=== PATIENT | male | born 1975 | race Caucasian/White ===

== ENCOUNTER 2018-12-31 22:21 | Emergency (ER) | payer OTHER ==
[2018-12-31 22:42] VITALS: RESP 18
[2019-01-01] MEDS ORDERED: MECLIZINE 12.5 MG TAB PO STA (00:08)
--- NOTE | 2019-01-01 00:35 | XR ---
EXAM: XR Chest, 2 Views CLINICAL HISTORY: ITS.REASON XR Reason: Chest Pain TECHNIQUE: Frontal and lateral views of the chest. COMPARISON: No relevant prior studies available. FINDINGS: Lungs: Unremarkable. No consolidation. Pleural space: Unremarkable. No pneumothorax. Heart: No suspicious enlargement. Mediastinum: Unremarkable. Bones/joints: No acute fracture. IMPRESSION: No acute findings.
[2019-01-01 00:44] LABS: ALT 42 U/L (21-72); AST 30 U/L (17-59); African American GFR (CKD) >90 (>60 ml/min/1.73 sqM); Alkaline Phosphatase 98 U/L (38-126); Anion Gap 8 mmol/L; Blood Urea Nitrogen 14 mg/dL (9-20); Calcium 9.2 mg/dL (8.4-10.2); Carbon Dioxide 25 mmol/L (22-30); Chloride 105 mmol/L (98-107); Glucose 103 mg/dL (74-99); Magnesium 1.8 mg/dL (1.6-2.3); Potassium 4.5 mmol/L (3.5-5.1); Sodium 138 mmol/L (137-145); Total Bilirubin 0.6 mg/dL (0.2-1.3); Total Protein 7.1 g/dL (6.3-8.2)
[2019-01-01 00:45] LABS: Basophils # (A) 0.1 k/uL (0-0.2); Basophils % (A) 1 %; Eosinophils # (A) 0.2 k/uL (0-0.7); Eosinophils % (A) 1 %; HCT 47.2 % (39.0-53.0); HGB 16.1 gm/dL (13.0-17.5); Lymphocytes # (A) 3.2 k/uL (1.0-4.8); Lymphocytes % (A) 18 %; MCH 29.7 pg (25.0-35.0); MCHC 34.1 g/dL (31.0-37.0); MCV 86.9 fL (80.0-100.0); Mean Platelet Volume 7.5; Monocytes % (A) 6 %; Neutrophils # (A) 12.9 k/uL (1.3-7.7); Neutrophils % (A) 73 %; Platelet Count 333 k/uL (150-450); RBC 5.43 m/uL (4.30-5.90); RDW 13.7 % (11.5-15.5); WBC 17.7 k/uL (3.8-10.6)
[2019-01-01 01:03] LABS: INR 0.9 (<1.2); Prothrombin Time 10.1 sec (9.0-12.0)
[2019-01-01] MEDS ORDERED: METOCLOPRAMIDE 5 MG/ML 2 ML VIAL IVP STA (01:04)
[2019-01-01] MEDS ORDERED: ONDANSETRON 4 MG/2 ML VIAL IVP STA (01:07)
[2019-01-01 01:20] LABS: Partial Thromboplastin Time 20.2 sec (22.0-30.0)
--- NOTE | 2019-01-01 02:23 | CT ---
EXAM: CT Head Without Intravenous Contrast CLINICAL HISTORY: ITS.REASON CT Reason: dizziness TECHNIQUE: Axial computed tomography images of the head/brain without intravenous contrast. DLP is 1539 mGy-cm. This CT exam was performed using one or more of the following dose reduction techniques: automated exposure control, adjustment of the mA and/or kV according to patient size, and/or use of iterative reconstruction technique. COMPARISON: No relevant prior studies available. FINDINGS: Brain: No hemorrhage. No mass effect. Mon white junction preserved. Ventricles: Age appropriate Sinuses: Well aerated as visualized. Mastoid air cells: Well aerated as visualized. IMPRESSION: No acute intracranial findings
--- NOTE | 2019-01-01 02:31 | CT ---
EXAM: CT Angiography Head With Intravenous Contrast CLINICAL HISTORY: ITS.REASON CT Reason: Pain TECHNIQUE: Axial computed tomographic angiography images of the head with intravenous contrast using CT angiography protocol. CTDI is 5 mGy and DLP is 1068.4 mGy-cm. This CT exam was performed using one or more of the following dose reduction techniques: automated exposure control, adjustment of the mA and/or kV according to patient size, and/or use of iterative reconstruction technique. MIP reconstructed images were created and reviewed. COMPARISON: No relevant prior studies available. FINDINGS: Venous contamination. No large vessel occlusion, aneurysm or other vascular etiology for patient's symptoms. IMPRESSION: No vascular findings to explain patient's symptoms. EXAM: CT Angiography Neck With Intravenous Contrast CLINICAL HISTORY: ITS.REASON CT Reason: Pain TECHNIQUE: Axial computed tomographic angiography images of the neck with intravenous contrast using CT angiography protocol. This CT exam was performed using one or more of the following dose reduction techniques: automated exposure control, adjustment of the mA and/or kV according to patient size, and/or use of iterative reconstruction technique. MIP reconstructed images were created and reviewed. COMPARISON: No relevant prior studies available. FINDINGS: No evidence for dissection. No hemodynamically significant ICA stenosis. CAROTID STENOSIS REFERENCE USING NASCET CRITERIA: % ICA stenosis = (1 - narrowest ICA diameter/diameter of distal cervical ICA) x 100. Mild - <50% stenosis. Moderate - 50-69% stenosis. Severe - 70-94% stenosis. Near occlusion - 95-99% stenosis. Occluded - 100% stenosis. IMPRESSION: Unremarkable neck CTA. No significant stenosis.
--- NOTE | 2019-01-01 02:55 | ED ---
Dizziness HPI - General Chief Complaint: Dizziness Stated Complaint: lightheaded/nausea/dizziness Time Seen by Provider: 12/31/18 23:14 Source: patient Mode of arrival: wheelchair Limitations: no limitations - History of Present Illness Initial Comments: 43-year-old male presenting for dizziness x 4 days. Patient states about 4 days ago he began experiencing dizziness, he states it came on suddenly. He states is intense spinning that causes him nausea, he states at times he gets sweaty prior to the onset. He states the dizziness is brought on by patient turning his head abruptly or change of position. Patient states that the symptoms are not constant and fluctuating, he states that they eventually go away and then return with movement. Patient denies any hearing loss or ringing in the ears. Patient denies any numbness or tingling loss of sensation or weakness of the upper or lower extremities, speech or facial expression changes. He denies any headache. He denies any recent head trauma he denies fever or chills night sweats or neck pain. Patient thought he may have vertigo and presented for evaluation with symptoms occurred again today. Remaining review of system negative, Patient denies any recent shortness of breath, chest pain, back pain, abdominal pain, dysuria or hematuria, constipation or diarrhea, diplopia or any other complaints. - Related Data Previous Rx's Medication Instructions Recorded Meclizine [Antivert] 25 mg PO BID 10 Days #20 tab 01/01/19 Ondansetron Odt [Zofran Odt] 4 mg PO Q8HR PRN 7 Days #21 tab 01/01/19 Allergies Allergy/AdvReac Type Severity Reaction Status Date / Time No Known Allergies Allergy Verified 12/31/18 22:43 Review of Systems ROS Statement: Those systems with pertinent positive or pertinent negative responses have been documented in the HPI. ROS Other: All systems not noted in ROS Statement are negative. Past Medical History Past Medical History: Hypertension History of Any Multi-Drug Resistant Organisms: None Reported Past Surgical History: No Surgical Hx Reported Past Psychological History: No Psychological Hx Reported Smoking Status: Never smoker Past Alcohol Use History: Occasional Past Drug Use History: None Reported General Exam - General Exam Comments Initial Comments: General: The patient is awake and alert, in no distress, and does not appear acutely ill. Eye: +3 mm pupils are equal, round and reactive to light, extra-ocular movements are intact. No APD. No noted nystagmus. There is normal conjunctiva bilaterally. No signs of icterus. Ears, nose, mouth and throat: There are moist mucous membranes and no oral lesions. Neck: The neck is supple, there is no tenderness or JVD. Cardiovascular: There is a regular rate and rhythm. No murmur, rub or gallop is appreciated. Respiratory: Lungs are clear to auscultation, respirations are non-labored, breath sounds are equal. No wheezes, stridor, rales, or rhonchi. Gastrointestinal: Soft, non-distended, non-tender abdomen without masses or organomegaly noted. There is no rebound or guarding present. No CVA tenderness. Bowel sounds are unremarkable. Musculoskeletal: Normal ROM, no tenderness. Strength 5/5. Sensation intact. Radial pulses equal bilaterally 2+. Neurological: A&O x 3. CN II-XII intact, There are no obvious motor or sensory deficits. Speech is normal. No pronator drift. Very fluid finger to nose and chin addition of the upper and lower extremity bilaterally. No ataxia with gait. Skin: Skin is warm and dry and no rashes or lesions are noted. No LE edema. Psychiatric: Cooperative, appropriate mood & affect, normal judgment. Limitations: no limitations Course Vital Signs 12/31/18 01/01/19 22:39 03:08 Temperature 97.8 F 97 F L Pulse Rate 66 84 Respiratory 18 18 Rate Blood Pressure 136/75 154/69 O2 Sat by Pulse 95 97 Oximetry EKG Findings - EKG Comments: EKG Findings:: Ventricular rate 66 bpm, NJ interval 168 ms, QRS 90 ms, QT/QTC 46/425 ms. Noraml Sinus. No ST elevation or depression. Medical Decision Making - Medical Decision Making Well-appearing 43-year-old male presenting for dizziness. Patient states it began suddenly 4 days ago with turning of his head. Patient states it feels as though the room is spinning. Patient denies any head injury or headaches. No focal neurological deficits on examination. No signs of ataxia. Movements are very coordinated. No noted nystagmus. Cecilio-Hallpike induced dizziness. No noted nytagmus. No hearing changes. Pt states symptoms come and go pt nauseated/vomiting. Denies chest pain/SOB, EKG no acute abnormalities. Pt CXR WNL. CTA and CT wo contrast were obtained. No posterior vascular compromise, no evidence of acute intracranial process. Pt symptoms appear consistent with a peripheral cause of vertigo and are reproduced with movement of the head. Pt given antivert. Antiemetics. I discussed the case in detail and at length with attending provider Dr. Brewster who is agreeable with patient discharge and care plan today. Pt was given referral for ENT as well as neurology. Return parameters were discussed at length pt verbalized understanding. Pt was discharged appearing well. WIth RX for antivert and antiemetic. Pt verbalized understanding of discharge plan, return parameters and importance of f/u. - Lab Data Result diagrams: 01/01/19 00:18 12/31/18 23:59 Lab Results 12/31/18 12/31/18 01/01/19 Range/Units 23:59 23:59 00:18 WBC 17.7 H (3.8-10.6) k/uL RBC 5.43 (4.30-5.90) m/uL Hgb 16.1 (13.0-17.5) gm/dL Hct 47.2 (39.0-53.0) % MCV 86.9 (80.0-100.0) fL MCH 29.7 (25.0-35.0) pg MCHC 34.1 (31.0-37.0) g/dL RDW 13.7 (11.5-15.5) % Plt Count 333 (150-450) k/uL Neutrophils % 73 % Lymphocytes % 18 % Monocytes % 6 % Eosinophils % 1 % Basophils % 1 % Neutrophils # 12.9 H (1.3-7.7) k/uL Lymphocytes # 3.2 (1.0-4.8) k/uL Monocytes # 1.0 (0-1.0) k/uL Eosinophils # 0.2 (0-0.7) k/uL Basophils # 0.1 (0-0.2) k/uL PT 10.1 (9.0-12.0) sec INR 0.9 (<1.2) APTT 20.2 L (22.0-30.0) sec Sodium 138 (137-145) mmol/L Potassium 4.5 (3.5-5.1) mmol/L Chloride 105 (98-107) mmol/L Carbon Dioxide 25 (22-30) mmol/L Anion Gap 8 mmol/L BUN 14 (9-20) mg/dL Creatinine 0.88 (0.66-1.25) mg/dL Est GFR (CKD-EPI)AfAm >90 (>60 ml/min/1.73 sqM) Est GFR (CKD-EPI)NonAf >90 (>60 ml/min/1.73 sqM) Glucose 103 H (74-99) mg/dL Calcium 9.2 (8.4-10.2) mg/dL Magnesium 1.8 (1.6-2.3) mg/dL Total Bilirubin 0.6 (0.2-1.3) mg/dL AST 30 (17-59) U/L ALT 42 (21-72) U/L Alkaline Phosphatase 98 (38-126) U/L Troponin I (0.000-0.034) ng/mL Total Protein 7.1 (6.3-8.2) g/dL Albumin 4.0 (3.5-5.0) g/dL 01/01/19 Range/Units 00:18 WBC (3.8-10.6) k/uL RBC (4.30-5.90) m/uL Hgb (13.0-17.5) gm/dL Hct (39.0-53.0) % MCV (80.0-100.0) fL MCH (25.0-35.0) pg MCHC (31.0-37.0) g/dL RDW (11.5-15.5) % Plt Count (150-450) k/uL Neutrophils % % Lymphocytes % % Monocytes % % Eosinophils % % Basophils % % Neutrophils # (1.3-7.7) k/uL Lymphocytes # (1.0-4.8) k/uL Monocytes # (0-1.0) k/uL Eosinophils # (0-0.7) k/uL Basophils # (0-0.2) k/uL PT (9.0-12.0) sec INR (<1.2) APTT (22.0-30.0) sec Sodium (137-145) mmol/L Potassium (3.5-5.1) mmol/L Chloride (98-107) mmol/L Carbon Dioxide (22-30) mmol/L Anion Gap mmol/L BUN (9-20) mg/dL Creatinine (0.66-1.25) mg/dL Est GFR (CKD-EPI)AfAm (>60 ml/min/1.73 sqM) Est GFR (CKD-EPI)NonAf (>60 ml/min/1.73 sqM) Glucose (74-99) mg/dL Calcium (8.4-10.2) mg/dL Magnesium (1.6-2.3) mg/dL Total Bilirubin (0.2-1.3) mg/dL AST (17-59) U/L ALT (21-72) U/L Alkaline Phosphatase (38-126) U/L Troponin I <0.012 (0.000-0.034) ng/mL Total Protein (6.3-8.2) g/dL Albumin (3.5-5.0) g/dL Disposition Clinical Impression: Dizziness Disposition: HOME SELF-CARE Condition: Good Instructions (If sedation given, give patient instructions): Dizziness (ED) Additional Instructions: Please use medication as discussed. Please follow-up with family doctor in the next 2 days of symptoms have not improved. Please return to emergency room if the symptoms increase or worsen or for any other concerns. Prescriptions: Meclizine [Antivert] 25 mg PO BID 10 Days #20 tab Ondansetron Odt [Zofran Odt] 4 mg PO Q8HR PRN 7 Days #21 tab PRN Reason: Nausea Is patient prescribed a controlled substance at d/c from ED?: No Referrals: Carol Colin MD [Primary Care Provider] - 1-2 days Buck Young DO [Doctor of Osteopathic Medicine] - 1-2 days Yonas Naranjo MD [Medical Doctor] - 1-2 days Time of Disposition: 02:51
[2019-01-01 03:10] VITALS: BP 154/69; PULSE 84; TEMP 97
== END 2019-01-01 03:10 | disposition home or self-care (01) ==
LOC: EC 22:21
DX: R42 Dizziness and giddiness (principal); R11.0 Nausea
CPT/HCPCS: 99284 ×2; 96374 ×2; 36415; 93005; 80053; 83735; 84484; 85025; 85610; 85730; 71046; 70496; 70450; 70498; J2405; Q9967

== ENCOUNTER → 2020-12-01 | Outpatient (CLI) | payer OTHER ==
--- NOTE | 2020-12-01 12:32 | MM ---
Reason for exam: clinical finding. Indicated problem(s): lump or thickening in the left breast. Physical Findings: Nurse Summary: 1cm nodule in the left breast at 1-2 o'clock (nurse TM). MG 3D Diag Mammo W/Cad KEYLA Bilateral CC and MLO view(s) were taken. XCCL view(s) were taken of the left breast. Finding #1: There is a 10 mm mass in the upper outer quadrant of the left breast. Finding #2: There are typically benign calcifications. These results were verbally communicated with the patient and result sheet given to the patient on 12/01/20. ASSESSMENT: Incomplete: need additional imaging evaluation, BI-RAD 0 RECOMMENDATION: Ultrasound of the left breast.
--- NOTE | 2020-12-01 12:33 | USB ---
Reason for exam: additional evaluation requested from abnormal screening. US Breast LT Left complete breast ultrasound includes all four quadrants, the retroareolar region and axilla. Finding demonstrates a 1.1 x 1.1 x 1.0cm lesion at 2 o'clock. These results were verbally communicated with the patient and result sheet given to the patient on 12/01/20. ASSESSMENT: Benign, BI-RAD 2 RECOMMENDATION: Clinical management of the left breast. Manage patient on a clinical basis.
== END | disposition home or self-care (01) ==
LOC: RADMAMWWP 06:58
PROVIDERS: ATTEND Family Medicine
DX: N63.20 Unspecified lump in the left breast, unspecified quadrant (principal)
CPT/HCPCS: 77066; 76641; G0279; 77062

== ENCOUNTER 2021-05-11 15:01 | Inpatient (IN) | payer OTHER ==
[2021-05-11] MEDS ORDERED: KETOROLAC 15 MG/ML 1 ML VIAL IVP STA (17:01)
[2021-05-11] MEDS ORDERED: ACETAMINOPHEN TAB 500 MG TAB PO STA (17:01)
[2021-05-11] MEDS ORDERED: SODIUM CHLORIDE 0.9% 500 ML 500 ML IV STA (17:01)
[2021-05-11 17:24] LABS: HGB 15.1 gm/dL (13.0-17.5); MCH 30.9 pg (25.0-35.0); MCHC 34.3 g/dL (31.0-37.0); MCV 90.1 fL (80.0-100.0); Mean Platelet Volume 7.6; Platelet Count 292 k/uL (150-450); RBC 4.89 m/uL (4.30-5.90); RDW 12.8 % (11.5-15.5); WBC 20.3 k/uL (3.8-10.6)
[2021-05-11 17:40] LABS: ALT 21 U/L (4-49); AST 23 U/L (17-59); African American GFR (CKD) >90 (>60 ml/min/1.73 sqM); Albumin 4.1 g/dL (3.5-5.0); Alkaline Phosphatase 93 U/L (38-126); Anion Gap 10 mmol/L; Blood Urea Nitrogen 14 mg/dL (9-20); Carbon Dioxide 23 mmol/L (22-30); Chloride 99 mmol/L (98-107); Glucose 100 mg/dL (74-99); Non-African American GFR(CKD) >90 (>60 ml/min/1.73 sqM); Potassium 3.9 mmol/L (3.5-5.1); Sodium 132 mmol/L (137-145); Total Bilirubin 0.8 mg/dL (0.2-1.3); Total Protein 7.2 g/dL (6.3-8.2)
[2021-05-11 17:50] LABS: C Reactive Protein 17.1 mg/dL (<1.0)
[2021-05-11 18:23] LABS: Erythrocyte Sedimentation Rate 16 mm/hr (0-15)
--- NOTE | 2021-05-11 18:24 | US ---
EXAMINATION TYPE: US venous doppler duplex LE RT DATE OF EXAM: 05/11/2021 6:01 PM COMPARISON: NONE CLINICAL HISTORY: pain, swelling. Redness and pain to right leg SIDE PERFORMED: Right TECHNIQUE: The lower extremity deep venous system is examined utilizing real time linear array sonog rea with graded compression, doppler sonography and color-flow sonography. VESSELS IMAGED: Common Femoral Vein Deep Femoral Vein Greater Saphenous Vein * Femoral Vein Popliteal Vein Small Saphenous Vein * Proximal Calf Veins (* superficial vessels) Right Leg: Negative for DVT IMPRESSION: No evidence of deep vein thrombosis in the right leg.
[2021-05-11] MEDS ORDERED: cefTRIAXone IN SWFI 1,000 MG/10 ML SYRINGE IVP STA (18:27)
[2021-05-11] MEDS ORDERED: VANCOMYCIN IV PER PHARMACY 1 EACH MISC MISCELLANE PRN (18:27)
[2021-05-11] MEDS ORDERED: MORPHINE SULFATE 4 MG/ML SYRINGE IVP STA (18:32)
[2021-05-11] MEDS ORDERED: VANCOMYCIN 2,250 MG in SODIUM CHLORIDE 0.9% 500 ML 500 ML IVPB STA (18:33)
--- NOTE | 2021-05-11 18:36 | ED ---
Extremity Problem HPI - General Chief complaint: Extremity Problem,Nontraumatic Stated complaint: Celulitis sent by Cristi Time Seen by Provider: 05/11/21 16:40 Source: patient Mode of arrival: wheelchair Limitations: no limitations - History of Present Illness Initial comments: Patient is a 46-year-old male with history of hypertension, presenting to emergency Department with complaints of cellulitis in his right lower leg for the past week. He noticed some mild swelling of his right foot last week but thought it was because he might of been dehydrated. He states then he noticed some redness develop in his right lower leg near the ankle, he went to his doctor's office on Friday, 4 days ago and was started on Keflex. He states he's been taking this 3 times a day over the past week however yesterday and today the redness and pain has increased tremendously, the redness has now increased of his entire right lower leg. He now developed a fever and chills that started yesterday. He talked to his doctor who recommended coming into the ER for IV antibiotics. He denies being diabetic. He did not have a car injury to that leg that he is aware of. He denies history of blood clots. He has no chest pain or shortness of breath, does have some mild nausea but no vomiting or diarrhea. He has no further complaints at this time. Upon arrival to the ER, he is febrile to 100.1, tachycardia at 107, rest of vitals normal. - Related Data Home Medications Medication Instructions Recorded Confirmed Cephalexin [Keflex] 500 mg PO TID 05/11/21 05/11/21 Ergocalciferol (Vitamin D2) 1,250 mcg PO WEEKLY 05/11/21 05/11/21 [Drisdol (50,000 Iu)] Lisinopril-Hctz 20-25 mg 1 tab PO HS 05/11/21 05/11/21 [Zestoretic 20-25] atenoloL [Tenormin] 50 mg PO HS 05/11/21 05/11/21 Allergies Allergy/AdvReac Type Severity Reaction Status Date / Time No Known Allergies Allergy Verified 05/11/21 17:39 Review of Systems ROS Statement: Those systems with pertinent positive or pertinent negative responses have been documented in the HPI. ROS Other: All systems not noted in ROS Statement are negative. Past Medical History Past Medical History: Hypertension History of Any Multi-Drug Resistant Organisms: None Reported Past Surgical History: No Surgical Hx Reported Past Psychological History: No Psychological Hx Reported Smoking Status: Never smoker Past Alcohol Use History: Occasional Past Drug Use History: None Reported General Exam - General Exam Comments Initial Comments: GENERAL: Patient is well-developed and well-nourished. Patient is nontoxic and in mild distress. HEAD: Atraumatic, normocephalic. EYES: Pupils equal round and reactive to light, extraocular movements intact, sclera anicteric, conjunctiva are normal. Eyelids were unremarkable. ENT: Nares patent, oropharynx clear without exudates. Moist mucous membranes. NECK: Normal range of motion, supple without lymphadenopathy or JVD. LUNGS: Unlabored respirations. Breath sounds clear to auscultation bilaterally and equal. No wheezes rales or rhonchi. HEART: Regular rate and rhythm without murmurs, rubs or gallops. ABDOMEN: Soft, nontender, normoactive bowel sounds. No guarding, no rebound. No masses appreciated. : Deferred MUSCULOSKELETAL: Patient has pain with palpation of the right lower leg, this is swollen when compared to his left lower leg. He has a large amount of erythema spreading from his right ankle up to his right knee. He does have full range of motion of his joints of his right lower extremity. He is neurovascular intact. No clubbing or cyanosis. NEUROLOGICAL: Patient is alert and oriented x 3. SKIN: Warm, Dry, normal turgor. Patient has large area of cellulitis noted on the right lower leg, extends from the right ankle to the right knee. There is swelling present. Limitations: no limitations Course Vital Signs 05/11/21 16:11 Temperature 100.1 F H Pulse Rate 107 H Respiratory 20 Rate Blood Pressure 136/84 O2 Sat by Pulse 96 Oximetry Medical Decision Making - Medical Decision Making Patient is a 46-year-old male here with cellulitis of his right lower leg for the past week. He has been on Keflex. He arrived afebrile at 100.1, pulse is 107. Labs show a white count of 20.3, ESR 16 with CRP is 17.1. Ultrasound is negative for acute DVT of the right lower leg. Patient will be started on Rocephin and vancomycin and will be admitted for failed outpatient therapy, right lower leg cellulitis. Patient accepted by Dr. Morton. Case discussed with Dr. Cardoza. - Lab Data Result diagrams: 05/11/21 17:10 05/11/21 17:10 Lab Results 05/11/21 05/11/21 05/11/21 Range/Units 17:10 17:10 17:10 WBC 20.3 H (3.8-10.6) k/uL RBC 4.89 (4.30-5.90) m/uL Hgb 15.1 (13.0-17.5) gm/dL Hct 44.0 (39.0-53.0) % MCV 90.1 (80.0-100.0) fL MCH 30.9 (25.0-35.0) pg MCHC 34.3 (31.0-37.0) g/dL RDW 12.8 (11.5-15.5) % Plt Count 292 (150-450) k/uL MPV 7.6 ESR 16 H (0-15) mm/hr Sodium 132 L (137-145) mmol/L Potassium 3.9 (3.5-5.1) mmol/L Chloride 99 (98-107) mmol/L Carbon Dioxide 23 (22-30) mmol/L Anion Gap 10 mmol/L BUN 14 (9-20) mg/dL Creatinine 0.91 (0.66-1.25) mg/dL Est GFR (CKD-EPI)AfAm >90 (>60 ml/min/1.73 sqM) Est GFR (CKD-EPI)NonAf >90 (>60 ml/min/1.73 sqM) Glucose 100 H (74-99) mg/dL Plasma Lactic Acid Pablo 2.0 (0.7-2.0) mmol/L Calcium 9.0 (8.4-10.2) mg/dL Total Bilirubin 0.8 (0.2-1.3) mg/dL AST 23 (17-59) U/L ALT 21 (4-49) U/L Alkaline Phosphatase 93 (38-126) U/L C-Reactive Protein 17.1 H (<1.0) mg/dL Total Protein 7.2 (6.3-8.2) g/dL Albumin 4.1 (3.5-5.0) g/dL Disposition Clinical Impression: Cellulitis of right lower leg, Failure of outpatient treatment Disposition: ADMITTED IP TO THIS [facility] Condition: Stable Referrals: Carol Colin MD [Primary Care Provider] - 1-2 days Decision Date: 05/11/21 Decision Time: 18:43
[2021-05-11] MEDS ORDERED: ACETAMINOPHEN TAB 325 MG TAB PO PRN (18:43)
[2021-05-11] MEDS ORDERED: NALOXONE 0.4 MG/ML 1 ML VIAL IV PRN (18:43)
[2021-05-11] MEDS: SODIUM CHLORIDE 0.9% 1,000 ML IV SCH (19:50)
[2021-05-11] MEDS: KETOROLAC 15 MG/ML 1 ML VIAL IVP PRN (20:58)
[2021-05-11] MEDS: atenoloL 50 MG TAB PO SCH (23:46)
[2021-05-11] MEDS: LISINOPRIL-HCTZ 20-25 MG 1 EACH TAB PO SCH (23:46)
[2021-05-11] MEDS: MORPHINE SULFATE 4 MG/ML SYRINGE IV PRN (23:46)
--- NOTE | 2021-05-12 03:03 | P.HPIM ---
History of Present Illness H&P Date: 05/11/21 Chief Complaint: right leg swelling erythema 46 year old male with hypertension He comes in today due to worsening swelling and erythema of his right lower leg. symptoms started about a week ago , he can not recall any injury or trigger, no recent travel or hospitalization , no history of cancer, or surgery . patient PCP put him on keflex , he had 5 doses , but with no improvement , today he noticed worsening swelling and extension of erythema from his ankle , to the proximal right leg, with intense pain , 10/10 sharp attacks of pain with movement that lasts few seconds. for which he called his PCP, who recommended that he comes in for evaluation , no reported fever or chills at home, no other systemic symptoms. denies any chest pain , trouble breathing, abd pain , nausea or vomiting, denies any changes in his urinary or bowel habits. in the ED , venous doppler US , was negative for any acute DVT blood work showed elevated WBC temp in the ED was 100.1 Review of Systems Pertinent positives as noted in HPI. All other systems were reviewed and are negative Past Medical History Past Medical History: Hypertension History of Any Multi-Drug Resistant Organisms: None Reported Past Surgical History: No Surgical Hx Reported Past Psychological History: No Psychological Hx Reported Smoking Status: Never smoker Past Alcohol Use History: Occasional Past Drug Use History: None Reported - Past Family History family Family Medical History: No Reported History Medications and Allergies Home Medications Medication Instructions Recorded Confirmed Type Cephalexin [Keflex] 500 mg PO TID 05/11/21 05/11/21 History Ergocalciferol (Vitamin D2) 1,250 mcg PO WEEKLY 05/11/21 05/11/21 History [Drisdol (50,000 Iu)] Lisinopril-Hctz 20-25 mg 1 tab PO HS 05/11/21 05/11/21 History [Zestoretic 20-25] atenoloL [Tenormin] 50 mg PO HS 05/11/21 05/11/21 History Allergies Allergy/AdvReac Type Severity Reaction Status Date / Time No Known Allergies Allergy Verified 05/11/21 17:39 Physical Exam Vitals: Vital Signs Temp Pulse Pulse Resp BP BP Pulse Ox 05/11/21 20:59 98.3 F 84 18 133/82 95 05/11/21 20:00 84 18 117/66 96 05/11/21 16:11 100.1 F H 107 H 20 136/84 96 Intake and Output 05/11/21 05/11/21 05/11/21 06:59 14:59 22:59 Other: Weight 150.139 kg Constitutional: No acute distress, conversant, pleasant Eyes: Anicteric sclerae, moist conjunctiva, Pupils equal round reactive to light ENMT: NC/AT Oropharynx clear, no erythema, or exudates Neck: Supple, FROM, no masses, or JVD No carotid bruits No thyromegaly Lungs: Clear to auscultation Clear to percussion Normal respiratory effort, no accessory muscle use Cardiovascular: Heart regular in rate and rhythm, No murmurs, gallops, or rubs No peripheral edema Abdominal: Soft Nontender, no guarding, rebound or rigidity Abdomen moving with respiration Normoactive bowel sounds No hepatomegaly, No splenomegaly No palpable mass No abdominal wall hernia noted Skin: erythema and induration of the right leg , area was marked, with tenderness to palpation , no noted wounds or injury site. Extremities: No digital cyanosis No clubbing Pedal pulses intact and symmetrical Radial pulses intact and symmetrical No calf tenderness Psychiatric: Alert and oriented to person, place and time Appropriate affect fair judgement Neuro Muscles Strength 5/5 in all 4 extremities (limited exam over right lo wer extremity due to pain Sensation to light touch grossly present throughout Cranial nerves II-XII grossly intact No focal sensory deficits Lymphatics: no palpable cervical or supraclavicular , or inguinal lymph nodes Results CBC & Chem 7: 05/11/21 17:10 05/11/21 17:10 Labs: Abnormal Lab Results - Last 24 Hours (Table) 05/11/21 05/11/21 Range/Units 17:10 17:10 WBC 20.3 H (3.8-10.6) k/uL ESR 16 H (0-15) mm/hr Sodium 132 L (137-145) mmol/L Glucose 100 H (74-99) mg/dL C-Reactive Protein 17.1 H (<1.0) mg/dL Assessment and Plan Assessment: sepsis cellulitis of the right lower leg, failed outpatien therapy follow blood culture vanco dosing by pharmacy monitor vital signs pain control with opioids IVF hydration with normal saline 1 L bolus then 130 cc per hour tylenol for fever hypertension , controlle d resume home meds full code heparin sc for DVT ppx anticipated length of stay < 2 midnights anticipated discharge to home
[2021-05-12] MEDS: SODIUM CHLORIDE 0.9% 1,000 ML IV SCH ×3 (04:46→22:43)
[2021-05-12] MEDS: IBUPROFEN 400 MG TAB PO PRN ×2 (04:47→15:41)
[2021-05-12] MEDS: MORPHINE SULFATE 4 MG/ML SYRINGE IV PRN ×2 (06:27→12:49)
[2021-05-12] MEDS: VANCOMYCIN 2,250 MG in SODIUM CHLORIDE 0.9% 500 ML 500 ML IVPB SCH ×2 (07:23→22:44)
[2021-05-12 08:06] LABS: African American GFR (CKD) >90 (>60 ml/min/1.73 sqM); Anion Gap 6 mmol/L; Blood Urea Nitrogen 14 mg/dL (9-20); Calcium 8.5 mg/dL (8.4-10.2); Carbon Dioxide 26 mmol/L (22-30); Chloride 103 mmol/L (98-107); Glucose 116 mg/dL (74-99); Non-African American GFR(CKD) >90 (>60 ml/min/1.73 sqM); Potassium 4.2 mmol/L (3.5-5.1); Sodium 135 mmol/L (137-145)
[2021-05-12] MEDS: KETOROLAC 15 MG/ML 1 ML VIAL IVP PRN ×3 (09:55→22:52)
[2021-05-12 11:38] LABS: HCT 41.7 % (39.6-50.0); HGB 14.1 g/dL (13.0-17.0); MCH 30.5 pg (27.0-32.0); MCHC 33.8 g/dL (32.0-37.0); MCV 90.3 fL (80.0-97.0); Mean Platelet Volume 10.7 fL (9.5-12.2); Platelet Count 260 X 10*3/uL (140-440); RBC 4.62 X 10*6/uL (4.40-5.60); RDW 12.6 % (11.5-14.5); WBC 16.56 X 10*3/uL (4.50-10.00)
[2021-05-12 13:12] LABS: Basophils # (A) 0.05 X 10*3/uL (0.00-0.10); Basophils % (A) 0.3 %; Eosinophils % (A) 0.6 %; Lymphocytes # (A) 2.13 X 10*3/uL (0.90-5.00); Lymphocytes % (A) 12.9 %; Monocytes # (A) 1.73 X 10*3/uL (0.20-1.00); Monocytes % (A) 10.4 %; Neutrophils # (A) 12.48 X 10*3/uL (1.80-7.70); Neutrophils % (A) 75.4 %
--- NOTE | 2021-05-12 17:23 | P.PN ---
Subjective Progress Note Date: 05/12/21 (delayed charting seen at 1130) Principal diagnosis: Leg redness Patient is a 46-year-old male for history of hypertension who presented to the emergency department at the direction of his primary care physician Dr. Sloan Mays for failed outpatient treatment of cellulitis. He had been started on Keflex and received 1.5 days of treatment but had worsening of his pain, edema, and redness and therefore presented to the ER. In the emergency department he underwent extensive evaluation. On arrival he was febrile at 100.1. Initial labs showed a white blood cell count of 20.3, sodium 132, CRP 17. He was started on vancomycin and admitted for further monitoring. The day after admission his white blood cell count improved to 12 he still had significant swelling, erythema and pain. Imaging: Right lower [place] evening as Doppler-no DVT Patient seen and examined at bedside. He states he was an [employer] and therefore knows with the antibiotics have not gotten to the Core the infection and she continues to have pain when he is ambulating. He denies any nausea, vomiting, or loose stools. Denies any chest pain or shortness of breath. He did not have any injury or skin breaks to his lower extremity. He does sometimes develop lower extremity edema. General: non toxic, no distress, appears at stated age Derm: Swelling, warmth, and erythema to the right lower extremity from ankle through does not extend past the lines of demarcation. Head: atraumatic, normocephalic, symmetric Eyes: EOMI, no lid lag, anicteric sclera Mouth: no lip lesion, mucus membranes moist Cardiovascular: S1S2 reg, no murmur, positive posterior tibial pulse bilateral, Lungs: CTA bilateral, no rhonchi, no rales , no accessory muscle use Abdominal: soft, nontender to palpation, no guarding, no appreciable organomegaly Ext: no gross muscle atrophy, no contractures Neuro: CN II-XI grossly intact, no focal neuro deficits Psych: Alert, oriented, appropriate affect Right lower extremity cellulitis failed outpatient treatment with sepsis -Continue with IV fluids -Vancomycin -Repeat CBC in a.m. Hypertension, controlled -Continue with lisinopril, hydrochlorothiazide - follow blood pressure Vitamin D Deficiency - replacement will need on discharge. DVT prophylaxis: SCDs Discussed with: patient, nursing Anticipated discharge: in AM Anticipated discharge place: home A total of 35 minutes was spent on the care of this complex patient more than 50% of the time was spent in counseling and care coordination. Objective - Vital Signs Vital signs: Vital Signs Temp 99.0 F 05/12/21 14:00 Pulse 72 05/12/21 14:00 Resp 19 05/12/21 14:00 BP 105/67 05/12/21 14:00 Pulse Ox 98 05/12/21 14:00 Intake & Output 05/11/21 05/12/21 05/12/21 18:59 06:59 18:59 Weight 150.139 kg 150.139 kg Other: Voiding Method Toilet Toilet - Labs CBC & Chem 7: 05/12/21 07:24 05/12/21 07:24 Labs: Abnormal Lab Results - Last 24 Hours (Table) 05/11/21 05/11/21 05/12/21 Range/Units 17:10 17:10 07:24 WBC 20.3 H (3.8-10.6) k/uL Immature Gran # (0.00-0.04) X 10*3/uL Neutrophils # (1.80-7.70) X 10*3/uL Monocytes # (0.20-1.00) X 10*3/uL ESR 16 H (0-15) mm/hr Sodium 132 L 135 L (137-145) mmol/L Glucose 100 H 116 H (74-99) mg/dL C-Reactive Protein 17.1 H (<1.0) mg/dL 05/12/21 Range/Units 07:24 WBC 16.56 H (3.8-10.6) k/uL Immature Gran # 0.07 H (0.00-0.04) X 10*3/uL Neutrophils # 12.48 H (1.80-7.70) X 10*3/uL Monocytes # 1.73 H (0.20-1.00) X 10*3/uL ESR (0-15) mm/hr Sodium (137-145) mmol/L Glucose (74-99) mg/dL C-Reactive Protein (<1.0) mg/dL
[2021-05-12] MEDS: HYDROcodone/APAP 5-325MG 1 EACH TAB PO PRN ×2 (17:38→22:44)
[2021-05-12] MEDS: CHOLECALCIFEROL 25 MCG (1000 IU) TABLET PO SCH (17:39)
[2021-05-12] MEDS: atenoloL 50 MG TAB PO SCH (22:44)
[2021-05-12] MEDS: LISINOPRIL-HCTZ 20-25 MG 1 EACH TAB PO SCH (22:44)
[2021-05-13] MEDS: KETOROLAC 15 MG/ML 1 ML VIAL IVP PRN ×3 (04:08→17:54)
[2021-05-13] MEDS: HYDROcodone/APAP 5-325MG 1 EACH TAB PO PRN ×3 (04:09→17:53)
[2021-05-13] MEDS: SODIUM CHLORIDE 0.9% 1,000 ML IV SCH ×2 (04:12→08:33)
[2021-05-13] MEDS: VANCOMYCIN 2,250 MG in SODIUM CHLORIDE 0.9% 500 ML 500 ML IVPB SCH ×2 (08:32→17:54)
[2021-05-13] MEDS: CHOLECALCIFEROL 25 MCG (1000 IU) TABLET PO SCH (08:33)
[2021-05-13 11:16] LABS: HCT 38.8 % (39.6-50.0); HGB 13.1 g/dL (13.0-17.0); MCH 30.1 pg (27.0-32.0); MCHC 33.8 g/dL (32.0-37.0); MCV 89.2 fL (80.0-97.0); Mean Platelet Volume 10.6 fL (9.5-12.2); Platelet Count 249 X 10*3/uL (140-440); RBC 4.35 X 10*6/uL (4.40-5.60); RDW 12.6 % (11.5-14.5); WBC 13.65 X 10*3/uL (4.50-10.00)
[2021-05-13 12:43] LABS: African American GFR (CKD) 105.6 (60.0-200.0); Anion Gap 3.8 mmol/L (4.00-12.00); Carbon Dioxide 27.2 mmol/L (21.6-31.8); Magnesium 1.6 mg/dL (1.5-2.4); Non-African American GFR(CKD) 91.1 (60.0-200.0); Potassium 3.9 mmol/L (3.5-5.5)
--- NOTE | 2021-05-13 14:21 | P.PN ---
Subjective Progress Note Date: 05/13/21 Principal diagnosis: Leg redness Patient is a 46-year-old male for history of hypertension who presented to the emergency department at the direction of his primary care physician Dr. Sloan Mays for failed outpatient treatment of cellulitis. He had been started on Keflex and received 1.5 days of treatment but had worsening of his pain, edema, and redness and therefore presented to the ER. In the emergency department he underwent extensive evaluation. On arrival he was febrile at 100.1. Initial labs showed a white blood cell count of 20.3, sodium 132, CRP 17. He was s tarted on vancomycin and admitted for further monitoring. The day after admission his white blood cell count improved to 16 he still had significant swelling, erythema and pain. He continued to improve slowly. Imaging: Right lower [place] evening as Doppler-no DVT Patient seen and examined at bedside. He states that his redness is better but he is still having tons of pain and cannot flex his foot. He does not feel comfortable going home. Is having loose stools but no diarrhea. He denies any nausea or vomiting. General: non toxic, no distress, appears at stated age Derm: Swelling, warmth, and erythema to the right lower extremity from ankle through does not extend past the lines of demarcation- slightly improved from day prior with some desquamation starting the medial ankle Head: atraumatic, normocephalic, symmetric Eyes: EOMI, no lid lag, anicteric sclera Mouth: no lip lesion, mucus membranes moist Cardiovascular: S1S2 reg, no murmur, positive posterior tibial pulse bilateral, Lungs: CTA bilateral, no rhonchi, no rales , no accessory muscle use Abdominal: soft, nontender to palpation, no guarding, no appreciable organomegaly Ext: no gross muscle atrophy, no contractures Neuro: CN II-XI grossly intact, no focal neuro deficits Psych: Alert, oriented, appropriate affect Right lower extremity cellulitis failed outpatient treatment with sepsis -Completed IV fluids -Vancomycin -Repeat CBC in a.m. Hypertension, controlled -Continue with lisinopril, hydrochlorothiazide - follow blood pressure Vitamin D Deficiency - replacement will need on discharge. Hyponatremia, resolved DVT prophylaxis: SCDs Discussed with: patient, nursing Anticipated discharge: in AM Anticipated discharge place: home A total of 20 minutes was spent on the care of this complex patient more than 50% of the time was spent in counseling and care coordination. Objective - Vital Signs Vital signs: Vital Signs Temp 99.5 F 05/13/21 07:54 Pulse 69 05/13/21 07:54 Resp 18 05/13/21 07:54 BP 101/66 05/13/21 07:54 Pulse Ox 99 05/13/21 07:54 Intake & Output 05/12/21 05/13/21 05/13/21 18:59 06:59 18:59 Intake Total 1080 Balance 1080 Intake: Oral 1080 Other: Voiding Method Toilet Toilet Toilet # Voids 3 - Labs CBC & Chem 7: 05/13/21 06:38 05/13/21 06:38 Labs: Abnormal Lab Results - Last 24 Hours (Table) 05/13/21 05/13/21 Range/Units 06:38 06:38 WBC 13.65 H (4.50-10.00) X 10*3/uL RBC 4.35 L (4.40-5.60) X 10*6/uL Hct 38.8 L (39.6-50.0) % Anion Gap 3.80 L (4.00-12.00) mmol/L Calcium 8.0 L (8.7-10.3) mg/dL Microbiology - Last 24 Hours (Table) 05/11/21 17:10 Blood Culture - Preliminary Blood No Growth after 24 hours
[2021-05-13] MEDS: MORPHINE SULFATE 4 MG/ML SYRINGE IV PRN ×2 (14:53→21:38)
[2021-05-13] MEDS: MAGNESIUM SULFATE-D5W PMX 1 GM in DEXTROSE/WATER 1 100ML.BAG IVPB SCH ×2 (14:53→16:52)
[2021-05-13] MEDS: LISINOPRIL-HCTZ 20-25 MG 1 EACH TAB PO SCH (21:37)
[2021-05-13] MEDS: atenoloL 50 MG TAB PO SCH (21:37)
[2021-05-14] MEDS: MORPHINE SULFATE 4 MG/ML SYRINGE IV PRN ×3 (01:06→20:33)
[2021-05-14] MEDS: KETOROLAC 15 MG/ML 1 ML VIAL IVP PRN (03:57)
[2021-05-14] MEDS: HYDROcodone/APAP 5-325MG 1 EACH TAB PO PRN (03:58)
[2021-05-14] MEDS ORDERED: GABAPENTIN 300 MG CAP PO STA (05:25)
[2021-05-14] MEDS ORDERED: VANCOMYCIN TROUGH DUE 1 EACH MISC MISCELLANE ONE (06:00)
[2021-05-14 07:15] LABS: African American GFR (CKD) >90 (>60 ml/min/1.73 sqM); Anion Gap 5 mmol/L; Blood Urea Nitrogen 10 mg/dL (9-20); Calcium 8.3 mg/dL (8.4-10.2); Carbon Dioxide 24 mmol/L (22-30); Chloride 104 mmol/L (98-107); Glucose 104 mg/dL (74-99); Non-African American GFR(CKD) >90 (>60 ml/min/1.73 sqM); Potassium 3.8 mmol/L (3.5-5.1); Sodium 133 mmol/L (137-145)
[2021-05-14 07:43] LABS: HCT 39.3 % (39.0-53.0); HGB 13.6 gm/dL (13.0-17.5); MCH 31.1 pg (25.0-35.0); MCHC 34.7 g/dL (31.0-37.0); MCV 89.8 fL (80.0-100.0); Mean Platelet Volume 8.2; Platelet Count 321 k/uL (150-450); RBC 4.38 m/uL (4.30-5.90); RDW 12.8 % (11.5-15.5); WBC 12.5 k/uL (3.8-10.6)
[2021-05-14] MEDS: VANCOMYCIN 2,250 MG in SODIUM CHLORIDE 0.9% 500 ML 500 ML IVPB SCH ×2 (08:23→20:27)
[2021-05-14] MEDS: CHOLECALCIFEROL 25 MCG (1000 IU) TABLET PO SCH (08:28)
--- NOTE | 2021-05-14 11:54 | P.PN ---
Subjective Progress Note Date: 05/14/21 Principal diagnosis: Leg redness Patient is a 46-year-old male for history of hypertension who presented to the emergency department at the direction of his primary care physician Dr. Sloan Mays for failed outpatient treatment of cellulitis. He had been started on Keflex and received 1.5 days of treatment but had worsening of his pain, edema, and redness and therefore presented to the ER. In the emergency department he underwent extensive evaluation. On arrival he was febrile at 100.1. Initial labs showed a white blood cell count of 20.3, sodium 132, CRP 17. He was s tarted on vancomycin and admitted for further monitoring. The day after admission his white blood cell count improved to 16 he still had significant swelling, erythema and pain. He continued to improve slowly. His leg remained significantly red, swollen and painful. Concerns for possible strep over staph and rocephin added on 05/14. Imaging: Right lower [place] evening as Doppler-no DVT Patient seen and examined at bedside. No chest pain, no nausea, + BM today, still with increased pain when walking states that neurontin helped more than anything else. No nausea. General: non toxic, no distress, appears at stated age Derm: Swelling, warmth, and erythema to the right lower extremity from ankle through does not extend past the lines of demarcation- with possible blister formation right ankle. Head: atraumatic, normocephalic, symmetric Eyes: EOMI, no lid lag, anicteric sclera Mouth: no lip lesion, mucus membranes moist Cardiovascular: S1S2 reg, no murmur, positive posterior tibial pulse bilateral, Lungs: CTA bilateral, no rhonchi, no rales , no accessory muscle use Abdominal: soft, nontender to palpation, no guarding, no appreciable organomegaly Ext: no gross muscle atrophy, no contractures Neuro: CN II-XI grossly intact, no focal neuro deficits Psych: Alert, oriented, appropriate affect Right lower extremity cellulitis failed outpatient treatment with sepsis -Completed IV fluids - add rocephin for better strep coverage - conitnue to monitor. - Vancomycin - Repeat CBC in a.m. Hypertension, controlled - Continue with lisinopril, hydrochlorothiazide - follow blood pressure Vitamin D Deficiency - replacement will need on discharge. Hyponatremia, resolved DVT prophylaxis: SCDs Discussed with: patient, nursing Anticipated discharge: in AM Anticipated discharge place: home A total of 20 minutes was spent on the care of this complex patient more than 50% of the time was spent in counseling and care coordination. Objective - Vital Signs Vital signs: Vital Signs Temp 97.7 F 05/14/21 07:48 Pulse 64 05/14/21 07:48 Resp 16 05/14/21 07:48 BP 103/68 05/14/21 07:48 Pulse Ox 97 05/14/21 07:48 Intake & Output 05/13/21 05/14/21 05/14/21 18:59 06:59 18:59 Intake Total 540 380 Output Total 500 Balance 540 -120 Intake: Oral 540 380 Output: Urine 500 Other: Voiding Method Toilet Toilet Toilet Urinal # Voids 3 1 - Labs CBC & Chem 7: 05/14/21 05:28 05/14/21 05:28 Labs: Abnormal Lab Results - Last 24 Hours (Table) 05/13/21 05/14/21 05/14/21 Range/Units 06:38 05:28 05:28 WBC 12.5 H (3.8-10.6) k/uL Sodium 133 L (137-145) mmol/L Anion Gap 3.80 L (4.00-12.00) mmol/L Glucose 104 H (74-99) mg/dL Calcium 8.0 L 8.3 L (8.7-10.3) mg/dL Microbiology - Last 24 Hours (Table) 05/11/21 17:10 Blood Culture - Preliminary Blood No Growth after 48 hours
[2021-05-14] MEDS: GABAPENTIN 300 MG CAP PO SCH ×3 (11:57→20:28)
[2021-05-14] MEDS: LISINOPRIL-HCTZ 20-25 MG 1 EACH TAB PO SCH (20:28)
[2021-05-14] MEDS: atenoloL 50 MG TAB PO SCH (20:28)
[2021-05-15] MEDS: MORPHINE SULFATE 4 MG/ML SYRINGE IV PRN ×3 (02:12→23:02)
[2021-05-15] MEDS: HYDROcodone/APAP 5-325MG 1 EACH TAB PO PRN ×2 (05:03→13:27)
[2021-05-15] MEDS: VANCOMYCIN 2,250 MG in SODIUM CHLORIDE 0.9% 500 ML 500 ML IVPB SCH ×2 (06:19→18:47)
[2021-05-15 07:41] LABS: HCT 42.5 % (39.0-53.0); HGB 14.2 gm/dL (13.0-17.5); MCH 30.5 pg (25.0-35.0); MCHC 33.4 g/dL (31.0-37.0); MCV 91.3 fL (80.0-100.0); Mean Platelet Volume 7.4; Platelet Count 370 k/uL (150-450); RBC 4.66 m/uL (4.30-5.90); RDW 12.9 % (11.5-15.5); WBC 13.2 k/uL (3.8-10.6)
[2021-05-15 07:56] LABS: African American GFR (CKD) >90 (>60 ml/min/1.73 sqM); Anion Gap 6 mmol/L; Blood Urea Nitrogen 8 mg/dL (9-20); Calcium 8.7 mg/dL (8.4-10.2); Carbon Dioxide 30 mmol/L (22-30); Chloride 101 mmol/L (98-107); Glucose 106 mg/dL (74-99); Non-African American GFR(CKD) >90 (>60 ml/min/1.73 sqM); Potassium 3.8 mmol/L (3.5-5.1); Sodium 137 mmol/L (137-145)
[2021-05-15] MEDS: CHOLECALCIFEROL 25 MCG (1000 IU) TABLET PO SCH (11:01)
[2021-05-15] MEDS: GABAPENTIN 300 MG CAP PO SCH ×3 (11:04→21:25)
--- NOTE | 2021-05-15 13:50 | P.PN ---
Subjective Patient is feeling about the same today. He reported that his right leg is getting very painful when he gets up or even sit in the bed. He is comfortable laying back and slipped over 2 pillows. Area of redness is slightly shrinking compared to the marker. Objective - Vital Signs Vital signs: Vital Signs Temp 98.2 F 05/15/21 07:06 Pulse 62 05/15/21 07:06 Resp 16 05/15/21 07:06 BP 91/55 05/15/21 07:06 Pulse Ox 95 05/15/21 02:09 Intake & Output 05/14/21 05/15/21 05/15/21 18:59 06:59 18:59 Intake Total 800 Output Total 1320 1700 600 Balance -520 -1700 -600 Intake: Oral 800 Output: Urine 1320 1700 600 Other: Voiding Method Toilet Toilet Urinal # Bowel Movements 0 - Exam General: The patient is awake and alert, in no distress Eye: there is normal conjunctiva bilaterally. Neck: The neck is supple, there is no JVD. Cardiovascular: Normal S1-S2, no S3-S4, no murmurs. Respiratory: Lungs clear to auscultation bilaterally Gastrointestinal: Abdomen is soft, nontender Musculoskeletal: There is no pedal edema. Neurological:. Speech is normal. Skin: Skin is warm and dry - Labs CBC & Chem 7: 05/15/21 06:03 05/15/21 06:03 Labs: Abnormal Lab Results - Last 24 Hours (Table) 05/15/21 05/15/21 Range/Units 06:03 06:03 WBC 13.2 H (3.8-10.6) k/uL BUN 8 L (9-20) mg/dL Glucose 106 H (74-99) mg/dL Microbiology - Last 24 Hours (Table) 05/11/21 17:10 Blood Culture - Preliminary Blood No Growth after 72 hours Assessment and Plan Assessment: Patient is a 46-year-old male for history of hypertension who presented to the emergency department at the direction of his primary care physician Dr. Sloan Mays for failed outpatient treatment of cellulitis. He had been started on Keflex and received 1.5 days of treatment but had worsening of his pain, edema, and redness and therefore presented to the ER. In the emergency department he underwent extensive evaluation. On arrival he was febrile at 100.1. Initial labs showed a white blood cell count of 20.3, sodium 132, CRP 17. He was started on vancomycin and admitted for further monitoring. The day after admission his white blood cell count improved to 16 he still had significant swelling, erythema and pain. He continued to improve slowly. His leg remained significantly red, swollen and painful. Concerns for possible strep over staph and rocephin added on 05/14. Imaging: Right lower [place] evening as Doppler-no DVT Right lower extremity cellulitis failed outpatient treatment with sepsis -Completed IV fluids - add rocephin for better strep coverage - conitnue to monitor. - Vancomycin - Repeat CBC in a.m. -Infectious disease consult Hypertension, controlled - Continue with lisinopril, hydrochlorothiazide - follow blood pressure Vitamin D Deficiency - replacement will need on discharge. Hyponatremia, resolved DVT prophylaxis: SCDs Discussed with: patient, nursing Anticipated discharge: in AM Anticipated discharge place: home A total of 20 minutes was spent on the care of this complex patient more than 50% of the time was spent in counseling and care coordinatio
[2021-05-15] MEDS: atenoloL 50 MG TAB PO SCH (21:25)
[2021-05-15] MEDS: LISINOPRIL-HCTZ 20-25 MG 1 EACH TAB PO SCH (22:21)
[2021-05-16] MEDS: MORPHINE SULFATE 4 MG/ML SYRINGE IV PRN ×3 (06:27→20:21)
[2021-05-16] MEDS: VANCOMYCIN 2,250 MG in SODIUM CHLORIDE 0.9% 500 ML 500 ML IVPB SCH (06:32)
[2021-05-16] MEDS: GABAPENTIN 300 MG CAP PO SCH ×3 (08:25→20:21)
[2021-05-16] MEDS: CHOLECALCIFEROL 25 MCG (1000 IU) TABLET PO SCH (08:25)
--- NOTE | 2021-05-16 15:07 | P.PN ---
Subjective Patient reports no improvement lower extremity pain and swelling. There is draining as well. Objective - Vital Signs Vital signs: Vital Signs Temp 98.6 F 05/16/21 13:49 Pulse 76 05/16/21 13:49 Resp 16 05/16/21 13:49 BP 143/74 05/16/21 13:49 Pulse Ox 96 05/16/21 13:49 Intake & Output 05/15/21 05/16/21 05/16/21 18:59 06:59 18:59 Output Total 600 Balance -600 Output: Urine 600 Other: # Voids 6 2 2 # Bowel Movements 1 - Exam General: The patient is awake and alert, in no distress Eye: there is normal conjunctiva bilaterally. Neck: The neck is supple, there is no JVD. Cardiovascular: Normal S1-S2, no S3-S4, no murmurs. Respiratory: Lungs clear to auscultation bilaterally Gastrointestinal: Abdomen is soft, nontender Musculoskeletal: There is no pedal edema. Neurological:. Speech is normal. Skin: Skin is warm and dry - Labs CBC & Chem 7: 05/15/21 06:03 05/15/21 06:03 Labs: Microbiology - Last 24 Hours (Table) 05/11/21 17:10 Blood Culture - Preliminary Blood No Growth after 96 hours Assessment and Plan Assessment: Patient is a 46-year-old male for history of hypertension who presented to the emergency department at the direction of his primary care physician Dr. Sloan Mays for failed outpatient treatment of cellulitis. He had been started on Keflex and received 1.5 days of treatment but had worsening of his pain, edema, and redness and therefore presented to the ER. In the emergency department he underwent extensive evaluation. On arrival he was febrile at 100.1. Initial labs showed a white blood cell count of 20.3, sodium 132, CRP 17. He was started on vancomycin and admitted for further monitoring. The day after admission his white blood cell count improved to 16 he still had significant swelling, erythema and pain. He continued to improve slowly. His leg remained significantly red, swollen and painful. Concerns for possible strep over staph and rocephin added on 05/14. Imaging: Right lower [place] evening as Doppler-no DVT Right lower extremity cellulitis failed outpatient treatment with sepsis Concerns about possible abscess formation -Completed IV fluids - Continue IV antibiotic with vancomycin and ceftriaxone awaiting infectious disease evaluation - Consult vascular surgery for possible I&D Hypertension, controlled - Continue with lisinopril, hydrochlorothiazide - follow blood pressure Vitamin D Deficiency - replacement will need on discharge. Hyponatremia, resolved DVT prophylaxis: SCDs Discussed with: patient, nursing Anticipated discharge: in AM Anticipated discharge place: home A total of 20 minutes was spent on the care of this complex patient more than 50% of the time was spent in counseling and care coordinatio
[2021-05-16] MEDS: ceFAZolin 3 GM in SODIUM CHLORIDE 0.9% 100 ML IVPB SCH (15:13)
[2021-05-16] MEDS: HYDROcodone/APAP 5-325MG 1 EACH TAB PO PRN (16:06)
[2021-05-16] MEDS: CLINDAMYCIN 900 MG in DEXTROSE 5% IN WATER 50 ML IVPB SCH ×2 (16:06)
--- NOTE | 2021-05-16 16:50 | CONS ---
DATE OF CONSULTATION: 05/16/2021 This is a 46-year-old gentleman who came through the ER with history of swelling, pain and redness of the right lower extremity. The patient went to his PCP. Patient started on p.o. antibiotic. His pain became worse and redness became worse. He has been admitted. The patient was seen by infectious disease, started on IV antibiotic. The patient has cellulitis of the right lower extremity with blister formation at the ankle area, which has been opened up. The patient had some fluid. Culture has been taken. The patient does not give any history of cellulitis in the past. No history of trauma. No history of insect bite. The patient had a venous ultrasound which was negative for DVT. PAST MEDICAL HISTORY: History of hypertension, controlled with medication. ALLERGIES: No known allergies. SURGICAL HISTORY: No surgical history reported. PERSONAL HISTORY: No history of drug use or smoking. PHYSICAL EXAMINATION: Patient's temperature was 98.3 on arrival and on 05/11/2021 was 100.1. NECK: Supple. Trachea centered. RESPIRATORY: Good air entry into both lungs. CHEST examination: 1st and second sounds normal. ABDOMEN: Soft, nontender. VASCULAR examination: Brachial, radial femoral pulses are present. PT palpable. Patient has a cellulitis of the right lower extremity with blister which has been opened up. No fluctuation noted. The patient has tenderness on the calf area. Cellulitis is mostly on the anterior aspect of the right lower leg. No venous stasis. No varicosity noted. PLAN: The patient is on IV antibiotic. We will add Silvadene cream with compression wrap and 2 pillow elevation. There is a blister at the ankle site. If does not improve, we may do a small cruciate incision to see if there is any fluid collection or possible CTA of the leg. We will continue IV antibiotic. Follow with you. MMODL / IJN: [id number] / DION
[2021-05-16] MEDS: LISINOPRIL-HCTZ 20-25 MG 1 EACH TAB PO SCH (20:21)
[2021-05-16] MEDS: atenoloL 50 MG TAB PO SCH (20:21)
--- NOTE | 2021-05-16 23:27 | P.CONS ---
History of Present Illness - Reason for Consult Consult date: 05/16/21 right leg cellulitis Requesting physician: Shanae Dia - Chief Complaint right leg swelling and redness x 5 days - History of Present Illness History of present illness : Patient is 46-year male presenting to [facility] ER about 5 days ago in this patient with right lower extremity swelling and redness that apparently was going on for about 4 days b efore he presented to the hospital patient has been evaluated in outpatient setting by her primary care physician and has been treated with the oral Keflex with the patient took about 5 doses however the P did have a more swelling and redness to right lower extremity along with the pain patient describes the pain to be throbbing intensity almost 10 out of 10 and worse when he walks on it patient complaining of fever with chills per instruction of his primary care physician patient presented to the ER on 05/11/2021 for admission IV chemotherapy on admission to the hospital he did have a fever of 100.1 degrees forearm height patient did have a white count of 20,000 kidney function has been normal blood culture has been obtained which are currently pending patient did have a venous Doppler was negative for DVT patient has been treated with the vancomycin and Rocephin infectious disease was consulted as the patient did not have significant improvement with current antibiotic therapy Review of system: CONSTITUTIONAL: Positive for weakness along with the fever. EYES: No complaint. ENT: No complaint. RESPIRATORY: No complaint. CARDIOVASCULAR: No complaint. GENITOURINARY: No complaint. GASTROINTESTINAL: No complaint. MUSCULOSKELETAL: As per history of present illness. INTEGUMENTARY: As per history of present illness. PSYCHOLOGIC: No complaint. ENDOCRINE: No complaint. NEUROLOGIC: No complaint. Past medical history : Reviewed, documented below Past surgical history : Reviewed, documented below Social history: Reviewed, documented below Medications: Reviewed, as documented below EXAMINATION: Vital sigans= Reviewed and documented below GENERAL DESCRIPTION: Middle-aged male lying in bed, no distress. No tachypnea or accessory muscle of respiration use. HEENT: Shows Pallor , no scleral icterus. Oral mucous membrane is dry. NECK: Trachea central, no thyromegaly. LUNGS: Unlabored breathing. Clear to auscultation anteriorly. No wheeze or crackle. HEART: S1, S2, regular rate and rhythm. ABDOMEN: Soft, no tenderness , guarding or rigidity EXTREMITIES: Diffuse swelling redness of the right lower extremity which is warm to touch with a blister no evidence of any induration or drainage SKIN: No rash, no masses palpable. NEUROLOGICAL: The patient is awake, alert, oriented x3, mood and affect normal. LABS AND RADIOLOGY: Reviewed results see below Assessment : 1-patient with acute right lower extremity cellulitis in this patient who did have diffuse swelling and redness and a blister formation high clinical suspicion for streptococcal cellulitis that has not responded to the current antibiotic therapy of vancomycin and Rocephin clinical suspicion low for MRSA wound gram-negative infection Plan: 1-discontinue vancomycin and Rocephin 2-cefazolin 3 g every 8 hours and clindamycin 900 every 8 hour 3-remarked the area of the redness We will follow on clinical condition and cultures to further adjust medication if needed Thank you for this consultation we will follow the patient along with you Past Medical History Past Medical History: Hypertension History of Any Multi-Drug Resistant Organisms: None Reported Past Surgical History: No Surgical Hx Reported Past Anesthesia/Blood Transfusion Reactions: Unable to Obtain Additional Past Anesthesia/Blood Transfusion Reaction / Comm: PT has never had. Past Psychological History: No Psychological Hx Reported Smoking Status: Never smoker Past Alcohol Use History: Occasional Past Drug Use History: None Reported - Past Family History family Family Medical History: No Reported History Medications and Allergies Home Medications Medication Instructions Recorded Confirmed Type Cephalexin [Keflex] 500 mg PO TID 05/11/21 05/11/21 History Ergocalciferol (Vitamin D2) 1,250 mcg PO WEEKLY 05/11/21 05/11/21 History [Drisdol (50,000 Iu)] Lisinopril-Hctz 20-25 mg 1 tab PO HS 05/11/21 05/11/21 History [Zestoretic 20-25] atenoloL [Tenormin] 50 mg PO HS 05/11/21 05/11/21 History Allergies Allergy/AdvReac Type Severity Reaction Status Date / Time No Known Allergies Allergy Verified 05/11/21 17:39 Physical Exam Vitals: Vital Signs Temp Pulse Resp BP BP Pulse Ox 05/16/21 06:38 98.6 F 67 16 102/60 96 05/16/21 02:39 98.4 F 68 16 113/70 99 05/15/21 19:46 98.7 F 87 15 141/88 100 05/15/21 14:00 98.2 F 72 16 102/60 102/60 99 Intake and Output 05/15/21 05/16/21 05/16/21 22:59 06:59 14:59 Other: # Voids 6 2 # Bowel Movements 1 Results CBC & Chem 7: 05/15/21 06:03 05/15/21 06:03 Labs: Microbiology - Last 24 Hours (Table) 05/11/21 17:10 Blood Culture - Preliminary Blood No Growth after 96 hours
[2021-05-17] MEDS: MORPHINE SULFATE 4 MG/ML SYRINGE IV PRN ×5 (00:02→20:15)
[2021-05-17] MEDS: ceFAZolin 3 GM in SODIUM CHLORIDE 0.9% 100 ML IVPB SCH ×3 (00:02→15:54)
[2021-05-17] MEDS: CLINDAMYCIN 900 MG in DEXTROSE 5% IN WATER 50 ML IVPB SCH ×6 (00:02→10:17)
[2021-05-17] MEDS: HYDROcodone/APAP 5-325MG 1 EACH TAB PO PRN ×2 (02:03→08:21)
[2021-05-17] MEDS: CHOLECALCIFEROL 25 MCG (1000 IU) TABLET PO SCH (08:24)
[2021-05-17] MEDS: GABAPENTIN 300 MG CAP PO SCH ×3 (08:24→21:33)
[2021-05-17 09:18] LABS: Basophils # (A) 0.1 k/uL (0-0.2); Basophils % (A) 0 %; Eosinophils # (A) 0.6 k/uL (0-0.7); Eosinophils % (A) 5 %; HCT 42.3 % (39.0-53.0); HGB 14.5 gm/dL (13.0-17.5); Lymphocytes # (A) 2.6 k/uL (1.0-4.8); Lymphocytes % (A) 22 %; MCH 31.1 pg (25.0-35.0); MCHC 34.3 g/dL (31.0-37.0); MCV 90.7 fL (80.0-100.0); Mean Platelet Volume 7.7; Monocytes # (A) 1.1 k/uL (0-1.0); Monocytes % (A) 9 %; Neutrophils # (A) 7.1 k/uL (1.3-7.7); Neutrophils % (A) 61 %; Platelet Count 397 k/uL (150-450); RBC 4.66 m/uL (4.30-5.90); RDW 12.6 % (11.5-15.5); WBC 11.7 k/uL (3.8-10.6)
[2021-05-17 11:08] LABS: African American GFR (CKD) >90 (>60 ml/min/1.73 sqM); Anion Gap 8 mmol/L; Blood Urea Nitrogen 13 mg/dL (9-20); Carbon Dioxide 25 mmol/L (22-30); Chloride 102 mmol/L (98-107); Glucose 87 mg/dL (74-99); Non-African American GFR(CKD) >90 (>60 ml/min/1.73 sqM); Potassium 4.1 mmol/L (3.5-5.1); Sodium 135 mmol/L (137-145)
[2021-05-17 11:18] VITALS: BMI 47.5
--- NOTE | 2021-05-17 12:15 | P.PN ---
Subjective Patient reports feeling about the same compared to yesterday. Is still having a lot of pain and pressure when he gets up to walk with his right lower extremity in particular in the ankle area Objective - Vital Signs Vital signs: Vital Signs Temp 97.8 F 05/17/21 07:32 Pulse 59 L 05/17/21 08:31 Resp 16 05/17/21 07:32 BP 107/65 05/17/21 07:32 Pulse Ox 99 05/17/21 07:32 Intake & Output 05/16/21 05/17/21 05/17/21 18:59 06:59 18:59 Intake Total 1110 Balance 1110 Weight 150.139 kg Intake: Intake, IV Titration 150 Amount Clindamycin 900 mg In 50 Dextrose 5% in Water 50 ml @ 50 mls/hr IVPB Q8HR Y[facility] Rx#:[id number] ceFAZolin 3 gm In Sodium 100 Chloride 0.9% 100 ml @ 200 mls/hr IVPB Q8HR Y[facility] Rx#:[id number] Oral 960 Other: # Voids 2 2 - Exam General: The patient is awake and alert, in no distress Eye: there is normal conjunctiva bilaterally. Neck: The neck is supple, there is no JVD. Cardiovascular: Normal S1-S2, no S3-S4, no murmurs. Respiratory: Lungs clear to auscultation bilaterally Gastrointestinal: Abdomen is soft, nontender Musculoskeletal: There is no pedal edema. Neurological:. Speech is normal. Skin: Skin is warm and dry - Labs CBC & Chem 7: 05/17/21 06:03 05/17/21 06:03 Labs: Abnormal Lab Results - Last 24 Hours (Table) 05/17/21 05/17/21 Range/Units 06:03 06:03 WBC 11.7 H (3.8-10.6) k/uL Monocytes # 1.1 H (0-1.0) k/uL Sodium 135 L (137-145) mmol/L Microbiology - Last 24 Hours (Table) 05/16/21 10:00 Gram Stain - Preliminary Leg - Right Wound Culture - Preliminary 05/11/21 17:10 Blood Culture - Preliminary Blood No Growth after 120 hours Assessment and Plan Assessment: Patient is a 46-year-old male for history of hypertension who presented to the emergency department at the direction of his primary care physician Dr. Sloan Mays for failed outpatient treatment of cellulitis. He had been started on Keflex and received 1.5 days of treatment but had worsening of his pain, edema, and redness and therefore presented to the ER. In the emergency department he underwent extensive evaluation. On arrival he was febrile at 100.1. Initial labs showed a white blood cell count of 20.3, sodium 132, CRP 17. He was started on vancomycin and admitted for further monitoring. The day after admission his white blood cell count improved to 16 he still had significant swelling, erythema and pain. He continued to improve slowly. His leg remained significantly red, swollen and painful. Concerns for possible strep over staph and rocephin added on 05/14. Imaging: Right lower [place] evening as Doppler-no DVT Right lower extremity cellulitis failed outpatient treatment with sepsis Concerns about possible abscess formation -Completed IV fluids - Continue IV antibiotic as directed by infectious disease - Consulted vascular surgery, no need for I&D at this time Hypertension, controlled - Continue with lisinopril, hydrochlorothiazide - follow blood pressure Vitamin D Deficiency - replacement will need on discharge. Hyponatremia, resolved DVT prophylaxis: SCDs Discussed with: patient, nursing Anticipated discharge: in AM Anticipated discharge place: home A total of 20 minutes was spent on the care of this complex patient more than 50% of the time was spent in counseling and care coordinatio
--- NOTE | 2021-05-17 16:28 | PN ---
PROGRESS NOTE This is a 46-year-old gentleman who came with marked cellulitis abscess formation in the right lower extremity. Patient IV antibiotic under care of Infectious Disease. We have been using Silvadene with compression with 2 pillow elevation. Today we have changed the dressing. The patient has improved from marked cellulitis. He responded very well to the IV antibiotic and local care. We have applied Silvadene cream with compression wrap. Dressing can be changed tomorrow with Silvadene and IV antibiotic. MMODL / IJN: [id number] /
--- NOTE | 2021-05-17 17:10 | PN ---
PROGRESS NOTE DATE OF SERVICE: 05/17/2021 REASON FOR FOLLOWUP: Right lower extremity cellulitis. INTERVAL HISTORY: Patient is afebrile, has been breathing comfortably. Denies any chest pain, shortness of breath, cough, no abdominal pain. Pain to the right leg has slightly decreased. Has complained of more pain around the ankle area. PHYSICAL EXAMINATION: Blood pressure 106/69, pulse of 73, temperature 98.2. He is 96% on room air. General description is a middle-aged male lying in bed in no distress. Respiratory system: Unlabored breathing, clear to auscultation anteriorly. Heart S1, S2. Regular rate and rhythm. Abdomen soft, no tenderness. Right leg swelling persists. Redness slightly decreased. LABS: Hemoglobin is 14.5, white count 11.7, BUN of 13, creatinine 0.98. Cultures currently pending. DIAGNOSTIC IMPRESSION AND PLAN: Patient with acute right lower extremity cellulitis, did not respond very well to Rocephin and Vanco. Antibiotic adjusted to cefepime to continue while waiting for the culture to finalize. Monitor clinical course closely. MMODL / IJN: [id number] /
[2021-05-17] MEDS: LISINOPRIL-HCTZ 20-25 MG 1 EACH TAB PO SCH (21:33)
[2021-05-17] MEDS: atenoloL 50 MG TAB PO SCH (21:33)
[2021-05-18] MEDS: ceFAZolin 3 GM in SODIUM CHLORIDE 0.9% 100 ML IVPB SCH ×4 (00:01→23:17)
[2021-05-18] MEDS: CLINDAMYCIN 900 MG in DEXTROSE 5% IN WATER 50 ML IVPB SCH ×8 (00:01→23:54)
[2021-05-18] MEDS: MORPHINE SULFATE 4 MG/ML SYRINGE IV PRN ×2 (02:25→07:58)
[2021-05-18] MEDS: HYDROcodone/APAP 5-325MG 1 EACH TAB PO PRN (05:47)
[2021-05-18] MEDS: CHOLECALCIFEROL 25 MCG (1000 IU) TABLET PO SCH (09:36)
[2021-05-18] MEDS: GABAPENTIN 300 MG CAP PO SCH ×3 (09:36→20:50)
--- NOTE | 2021-05-18 12:15 | P.PN ---
Subjective Patient is feeling slightly better compared to yesterday. No acute events overnight. Right leg is wrapped with clean/dry dressing and Christoph wrap Objective - Vital Signs Vital signs: Vital Signs Temp 98.6 F 05/18/21 08:00 Pulse 66 05/18/21 08:00 Resp 18 05/18/21 08:00 BP 99/61 05/18/21 08:00 Pulse Ox 95 05/18/21 08:00 Intake & Output 05/17/21 05/18/21 05/18/21 18:59 06:59 18:59 Intake Total 630 Output Total 800 Balance -800 630 Weight 150.139 kg Intake: Intake, IV Titration 150 Amount Clindamycin 900 mg In 50 Dextrose 5% in Water 50 ml @ 50 mls/hr IVPB Q8HR [facility] Rx#:[id number] ceFAZolin 3 gm In Sodium 100 Chloride 0.9% 100 ml @ 200 mls/hr IVPB Q8HR [facility] Rx#:[id number] Oral 480 Output: Urine 800 Other: # Voids 3 # Bowel Movements 1 - Exam General: The patient is awake and alert, in no distress Eye: there is normal conjunctiva bilaterally. Neck: The neck is supple, there is no JVD. Cardiovascular: Normal S1-S2, no S3-S4, no murmurs. Respiratory: Lungs clear to auscultation bilaterally Gastrointestinal: Abdomen is soft, nontender Musculoskeletal: There is no pedal edema. Neurological:. Speech is normal. Skin: Skin is warm and dry - Labs CBC & Chem 7: 05/17/21 06:03 05/17/21 06:03 Labs: Microbiology - Last 24 Hours (Table) 05/16/21 10:00 Gram Stain - Final Leg - Right Wound Culture - Final 05/11/21 17:10 Blood Culture - Final Blood No Growth after 144 hours Assessment and Plan Assessment: Patient is a 46-year-old male for history of hypertension who presented to the emergency department at the direction of his primary care physician Dr. Sloan Mays for failed outpatient treatment of cellulitis. He had been started on Keflex and received 1.5 days of treatment but had worsening of his pain, edema, and redness and therefore presented to the ER. In the emergency department he underwent extensive evaluation. On arrival he was febrile at 100.1. Initial labs showed a white blood cell count of 20.3, sodium 132, CRP 17. He was started on vancomycin and admitted for further monitoring. The day after admission his white blood cell count improved to 16 he still had significant swelling, erythema and pain. He continued to improve slowly. His leg remained significantly red, swollen and painful. Concerns for possible strep over staph and rocephin added on 05/14. Imaging: Right lower [place] evening as Doppler-no DVT Right lower extremity cellulitis failed outpatient treatment with sepsis -Completed IV fluids - Continue IV antibiotic as directed by infectious disease - Consulted vascular surgery, no need for I&D at this time -Awaiting recommendations by infectious disease for antibiotic at discharge. Anticipate discharge home tomorrow Hypertension, controlled - Continue with lisinopril, hydrochlorothiazide - follow blood pressure Vitamin D Deficiency - replacement will need on discharge. Hyponatremia, resolved DVT prophylaxis: SCDs Discussed with: patient, nursing Anticipated discharge: in AM Anticipated discharge place: home A total of 20 minutes was spent on the care of this complex patient more than 50% of the time was spent in counseling and care coordinatio
[2021-05-18] MEDS: MORPHINE SULFATE 2 MG/ML SYRINGE IV PRN ×3 (12:31→21:03)
--- NOTE | 2021-05-18 15:35 | CT ---
EXAMINATION TYPE: CT lower leg RT w con DATE OF EXAM: 05/18/2021 COMPARISON: None HISTORY: 46-year-old male swelling and redness to Rt lower leg, assess for abscess TECHNIQUE: Contiguous axial scanning of the right leg from just above the knee to below the ankle per formed with IV Contrast, patient injected with 100 mL of Isovue 300. Coronal/sagittal reconstructions performed. CT DLP: 248 mGycm Automated exposure control for dose reduction was used. FINDINGS: There is prominent circumferential soft tissue swelling along the hindfoot. Thickening and scattered subcutaneous soft tissue swelling throughout the leg with edematous change in the subcutaneous adipos e layer, some areas extending to the superficial fascia suggestive the lateral aspect of the upper le g. There is a trace knee joint effusion. No Moseley's cyst. No discrete abscess is identified. There is a large bony spur from the dorsal talar neck. Smooth delineation to the Achilles tendon. No abnormal edema along the deep fascial planes. Findings curvilinear density along the lateral aspect of the talar head near the sinus Tarsi. If any pain here, findings could represent a subtle avulsion injury. Tiny corticated density also noted belo w the anterior colliculus of the medial malleolus measuring 4 mm. IMPRESSION: 1. PROMINENT SOFT TISSUE SWELLING ALONG THE LEG DOWN INTO THE HINDFOOT. SUBCUTANEOUS EDEMA EXTENDS TO THE SUPERFICIAL FASCIA AT SOME REGIONS SUCH THE LATERAL ASPECT OF THE UPPER LEG. FINDINGS SUGGEST CELLULITIS. 2. NO ABSCESS OR SIGNS OF A DEEPER SOFT TISSUE INFECTION OR OSTEOMYELITIS. 3. FINE CURVILINEAR DENSITY ALONG THE LATERAL ASPECT OF THE TALAR HEAD NEAR THE SINUS TARSI. IF THERE IS POINT TENDERNESS HERE AND HISTORY OF INJURY, FINDINGS COULD REPRESENT A SUBTLE AVULSION FRACTURE.
--- NOTE | 2021-05-18 16:08 | PN ---
PROGRESS NOTE DATE OF SERVICE: 05/18/2021 REASON FOR FOLLOWUP: Right lower extremity cellulitis. INTERVAL HISTORY: The patient is afebrile. He is still complaining of pain to the right lower extremity, especially on his ankle area. Patient denies having any chest pain, shortness of breath or cough. No abdominal pain or diarrhea. PHYSICAL EXAMINATION: Blood pressure 112/67, pulse of 77, temperature 99. He is 97% on room air. GENERAL DESCRIPTION: General description is a middle-aged male lying in bed in no distress. RESPIRATORY SYSTEM: Unlabored breathing. Clear to auscultation anteriorly. HEART: S1, S2. Regular rate and rhythm. ABDOMEN: Soft. No tenderness. Right leg is currently wrapped. Overall redness has decreased from the line that was placed. LABS: No new labs have been obtained today. Cultures are currently negative. Blood culture negative. DIAGNOSTIC IMPRESSION AND PLAN: Patient with acute right lower extremity cellulitis in this patient who did have a very slow clinical response to antibiotic therapy. The patient has been concerned about the pain. We will obtain a CT to make sure no evidence of any abscess that may need to be drained. Continue cefazolin and clindamycin. Continue supportive care. MMODL / IJN: [id number] /
--- NOTE | 2021-05-18 17:38 | PN ---
PROGRESS NOTE This is a 46-year-old gentleman who came in marked cellulitis and blister formation of the lower leg. The patient is on IV antibiotic per Infectious Disease. We were using Silvadene cream with compression wrap. The cellulitis has improved on the anterior aspect of the right lower leg. We did the CTA. CT scan shows no evidence of abscess. Most likely this gentleman has cellulitis responding to IV antibiotic and local care. MMODL / IJN: [id number] /
[2021-05-18] MEDS: LISINOPRIL-HCTZ 20-25 MG 1 EACH TAB PO SCH (20:50)
[2021-05-18] MEDS: atenoloL 50 MG TAB PO SCH (20:50)
[2021-05-19] MEDS: MORPHINE SULFATE 2 MG/ML SYRINGE IV PRN ×2 (02:16→06:17)
[2021-05-19] MEDS: CHOLECALCIFEROL 25 MCG (1000 IU) TABLET PO SCH (08:13)
[2021-05-19] MEDS: GABAPENTIN 300 MG CAP PO SCH ×3 (08:13→21:49)
[2021-05-19] MEDS: ceFAZolin 3 GM in SODIUM CHLORIDE 0.9% 100 ML IVPB SCH ×2 (08:52→17:08)
[2021-05-19 09:09] LABS: Basophils # (A) 0.1 k/uL (0-0.2); Basophils % (A) 1 %; Eosinophils # (A) 0.7 k/uL (0-0.7); Eosinophils % (A) 5 %; HCT 44.3 % (39.0-53.0); Lymphocytes % (A) 16 %; MCH 30.3 pg (25.0-35.0); MCHC 33.8 g/dL (31.0-37.0); MCV 89.5 fL (80.0-100.0); Mean Platelet Volume 6.8; Monocytes # (A) 0.9 k/uL (0-1.0); Monocytes % (A) 7 %; Neutrophils # (A) 8.5 k/uL (1.3-7.7); Neutrophils % (A) 69 %; Platelet Count 397 k/uL (150-450); RBC 4.95 m/uL (4.30-5.90); RDW 12.5 % (11.5-15.5); WBC 12.4 k/uL (3.8-10.6)
[2021-05-19 09:20] LABS: African American GFR (CKD) >90 (>60 ml/min/1.73 sqM); Anion Gap 10 mmol/L; Blood Urea Nitrogen 14 mg/dL (9-20); Calcium 9.1 mg/dL (8.4-10.2); Carbon Dioxide 24 mmol/L (22-30); Chloride 101 mmol/L (98-107); Glucose 117 mg/dL (74-99); Non-African American GFR(CKD) >90 (>60 ml/min/1.73 sqM); Potassium 4.2 mmol/L (3.5-5.1); Sodium 135 mmol/L (137-145)
[2021-05-19] MEDS: CLINDAMYCIN 900 MG in DEXTROSE 5% IN WATER 50 ML IVPB SCH ×4 (09:36→17:08)
[2021-05-19] MEDS ORDERED: diphenhydrAMINE 25 MG CAP PO STA (11:02)
--- NOTE | 2021-05-19 11:05 | P.PN ---
Subjective Patient is still complaining of severe pain and swelling when he gets up. Objective - Vital Signs Vital signs: Vital Signs Temp 97.6 F 05/19/21 08:00 Pulse 75 05/19/21 08:00 Resp 16 05/19/21 08:00 BP 127/85 05/19/21 08:00 Pulse Ox 98 05/19/21 08:00 Intake & Output 05/18/21 05/19/21 05/19/21 18:59 06:59 18:59 Other: Voiding Method Toilet Toilet Toilet Urinal Urinal Urinal # Voids 6 - Exam General: The patient is awake and alert, in no distress Eye: there is normal conjunctiva bilaterally. Neck: The neck is supple, there is no JVD. Cardiovascular: Normal S1-S2, no S3-S4, no murmurs. Respiratory: Lungs clear to auscultation bilaterally Gastrointestinal: Abdomen is soft, nontender Musculoskeletal: There is no pedal edema. Neurological:. Speech is normal. Skin: Skin is warm and dry - Labs CBC & Chem 7: 05/19/21 08:56 05/19/21 08:56 Labs: Abnormal Lab Results - Last 24 Hours (Table) 05/19/21 05/19/21 Range/Units 08:56 08:56 WBC 12.4 H (3.8-10.6) k/uL Neutrophils # 8.5 H (1.3-7.7) k/uL Sodium 135 L (137-145) mmol/L Glucose 117 H (74-99) mg/dL Microbiology - Last 24 Hours (Table) 05/16/21 10:00 Gram Stain - Final Leg - Right Wound Culture - Final Assessment and Plan Assessment: Patient is a 46-year-old male for history of hypertension who presented to the emergency department at the direction of his primary care physician Dr. Sloan Mays for failed outpatient treatment of cellulitis. He had been started on Keflex and received 1.5 days of treatment but had worsening of his pain, edema, and redness and therefore presented to the ER. In the emergency department he underwent extensive evaluation. On arrival he was febrile at 100.1. Initial labs showed a white blood cell count of 20.3, sodium 132, CRP 17. He was started on vancomycin and admitted for further monitoring. The day after admission his white blood cell count improved to 16 he still had significant swelling, erythema and pain. He continued to improve slowly. His leg remained significantly red, swollen and painful. Concerns for possible strep over staph and rocephin added on 05/14. Imaging: Right lower [place] evening as Doppler-no DVT Right lower extremity cellulitis failed outpatient treatment with sepsis -Completed IV fluids - Continue IV antibiotic as directed by infectious disease - Consulted vascular surgery, no need for I&D at this time -Computed tomography scan showed no evidence of abscess formation ? Avulsion fracture -This likely clinically. I would consult orthopedic for further evaluation given significant pain Hypertension, controlled - Continue with lisinopril, hydrochlorothiazide - follow blood pressure Vitamin D Deficiency - replacement will need on discharge. Hyponatremia, resolved DVT prophylaxis: SCDs Discussed with: patient, nursing Anticipated discharge: in AM Anticipated discharge place: home A total of 20 minutes was spent on the care of this complex patient more than 50% of the time was spent in counseling and care coordinatio
[2021-05-19] MEDS: HYDROcodone/APAP 5-325MG 1 EACH TAB PO PRN ×2 (13:55→21:49)
[2021-05-19] MEDS: LISINOPRIL-HCTZ 20-25 MG 1 EACH TAB PO SCH (21:49)
[2021-05-19] MEDS: atenoloL 50 MG TAB PO SCH (21:50)
[2021-05-19] MEDS: diphenhydrAMINE 25 MG CAP PO PRN (21:50)
[2021-05-20] MEDS: HYDROcodone/APAP 5-325MG 1 EACH TAB PO PRN ×3 (04:10→21:23)
--- NOTE | 2021-05-20 07:15 | PN ---
PROGRESS NOTE DATE OF SERVICE: 05/19/2021 REASON FOR FOLLOWUP: 1. Right lower extremity cellulitis. 2. Drug rash. INTERVAL HISTORY: The patient developed maculopapular rash in the upper and lower extremity complaining of itching. Still complaining of pain to the right leg. No chest pain, shortness of breath or cough. No abdominal pain or diarrhea. PHYSICAL EXAMINATION: Blood pressure 117/62 with a pulse of 80, temperature 98.7. He is 100% on room air. General description is a middle-aged male lying in bed in no distress. Respiratory system: Unlabored breathing clear to auscultation anteriorly. Heart S1, S2. Regular rate and rhythm. Abdomen soft, no tenderness. Right leg swelling and redness has very minimal improvement. LABS: Hemoglobin is 15, white count 10.4, BUN of 14, creatinine 0.97. DIAGNOSTIC IMPRESSION AND PLAN: Patient with acute right lower extremity cellulitis in this patient who did not have any good response to initial antibiotic of Rocephin and vanco. Culture has been negative for any resistant pathogen. Not developing a rash possibly related to the cefazolin. We will discontinue cefazolin and clindamycin. Switch over to daptomycin and monitor clinical course closely. MMODL / IJN: [id number] /
[2021-05-20] MEDS: GABAPENTIN 300 MG CAP PO SCH ×3 (07:24→21:26)
[2021-05-20] MEDS: CHOLECALCIFEROL 25 MCG (1000 IU) TABLET PO SCH (07:25)
[2021-05-20] MEDS: diphenhydrAMINE 25 MG CAP PO PRN (07:41)
--- NOTE | 2021-05-20 10:27 | P.PN ---
Subjective Patient had a chest rash on his left arm in the medial aspect of the elbow the diameter for approximately 10 cm. Patient said the rash is itchy. No acute events overnight otherwise. Objective - Vital Signs Vital signs: Vital Signs Temp 99.3 F 05/20/21 07:57 Pulse 63 05/20/21 07:57 Resp 18 05/20/21 08:00 BP 92/59 05/20/21 07:57 Pulse Ox 96 05/20/21 07:57 Intake & Output 05/19/21 05/20/21 05/20/21 18:59 06:59 18:59 Intake Total 480 870 Balance 480 870 Intake: Intake, IV Titration 150 Amount DAPTOmycin 600 mg In 50 Sodium Chloride 0.9% 50 ml @ 100 mls/hr IVPB Q24H [facility] Rx#:[id number] ceFAZolin 3 gm In Sodium 100 Chloride 0.9% 100 ml @ 200 mls/hr IVPB Q8HR [facility] Rx#:[id number] Oral 480 720 Other: Voiding Method Toilet Toilet Toilet Urinal Urinal Urinal # Voids 0 # Bowel Movements 0 - Exam General: The patient is awake and alert, in no distress Eye: there is normal conjunctiva bilaterally. Neck: The neck is supple, there is no JVD. Cardiovascular: Normal S1-S2, no S3-S4, no murmurs. Respiratory: Lungs clear to auscultation bilaterally Gastrointestinal: Abdomen is soft, nontender Musculoskeletal: There is no pedal edema. Neurological:. Speech is normal. Skin: Skin is warm and dry - Labs CBC & Chem 7: 05/19/21 08:56 05/19/21 08:56 Assessment and Plan Assessment: Patient is a 46-year-old male for history of hypertension who presented to the emergency department at the direction of his primary care physician Dr. Sloan Mays for failed outpatient treatment of cellulitis. He had been started on Keflex and received 1.5 days of treatment but had worsening of his pain, edema, and redness and therefore presented to the ER. In the emergency department he underwent extensive evaluation. On arrival he was febrile at 100.1. Initial labs showed a white blood cell count of 20.3, sodium 132, CRP 17. He was started on vancomycin and admitted for further monitoring. The day after admission his white blood cell count improved to 16 he still had significant swelling, erythema and pain. He continued to improve slowly. His leg remained significantly red, swollen and painful. Concerns for possible strep over staph and rocephin added on 05/14. Imaging: Right lower [place] evening as Doppler-no DVT Right lower extremity cellulitis failed outpatient treatment with sepsis -Completed IV fluids - Continue IV antibiotic as directed by infectious disease - Antibiotic switched to IV daptomycin on 05/19 secondary to suspected ALLERGY to cefazolin - Consulted vascular surgery, no need for I&D at this time -Computed tomography scan showed no evidence of abscess formation ? Avulsion fracture -This likely clinically. I would consult orthopedic for further evaluation given significant pain Hypertension, controlled - Continue with lisinopril, hydrochlorothiazide - follow blood pressure Vitamin D Deficiency - replacement will need on discharge. Hyponatremia, resolved DVT prophylaxis: SCDs Discussed with: patient, nursing Anticipated discharge: in AM Anticipated discharge place: home A total of 20 minutes was spent on the care of this complex patient more than 50% of the time was spent in counseling and care coordinatio
--- NOTE | 2021-05-20 11:35 | P.CNOR ---
<Brian Thompson - Last Filed: 05/20/21 11:33> History of Present Illness - [facility] Consult date: 05/20/21 Requesting physician: Bridgette Prajapati Consult reason: other (Right lower extremity leg pain and cellulitis, possible Talus avulsion fracture) History of present illness: Patient is a very pleasant 46-year-old male who is seen in exam at bedside in regards to his right lower extremity. Patient states on 05/08/2021 he started to experience some swelling around the left lower extremity over the ankle and foot. He states a day and a half later he began to have some erythema over the distal portion of his leg and around the ankle area. He saw his primary care provider and was started on Keflex. He states the following day the erythema had extended up his right lower extremity almost to the knee. After further discussion with his primary care provider, he presented to the emergency department for further evaluation on 05/11/2021. He was been admitted to the hospital for treatment and evaluation since this time. He is being seen by medicine, infectious disease, and vascular surgery. He has continued to have significant pain, cellulitis, and swelling of his right lower extremity. He states the swelling has improved since his admittance as his leg was significantly swollen when he first presented to the hospital. He has had some improvement of the cellulitis as well. He states he has been using elevation, ice, and compression. He states he has some pain over the distal anterior garvey and towards the medial ankle with ambulation. He states ambulation for even short distances to the restroom back causes excessive swelling over his right lower extremity which he states will take approximately a day and a half to subside. He strongly denies any injuries to his right lower extremity now for previously. He states the only medication he takes an outpatient setting is for hypertension. He is currently on daptomycin per infectious disease. Silvadene cream is also being applied over his right lower extremity. He did have a blister over the right lower extremity anteriorly near the ankle which has previously opened and this healing. He does continue to have warmth, swelling, pain, erythema over the anterior and medial aspect of the right lower extremity from the ankle almost extending up to the right knee. He is able to perform dorsiflexion and plantarflexion on the right lower extremity but does have some pain with returning to neutral from dorsiflexion. CT imaging was taken of his right lower extremity which ruled out any abscess or specific fluid collection. There was some question to possible talar avulsion fracture. Nursing states patient would like to be discharged home today given the significant duration he has remained in the hospital.. Past Medical History Past Medical History: Hypertension History of Any Multi-Drug Resistant Organisms: None Reported Past Surgical History: No Surgical Hx Reported Past Anesthesia/Blood Transfusion Reactions: Unable to Obtain Additional Past Anesthesia/Blood Transfusion Reaction / Comm: PT has never had. Past Psychological History: No Psychological Hx Reported Smoking Status: Never smoker Past Alcohol Use History: Occasional Past Drug Use History: None Reported - Past Family History family Family Medical History: No Reported History Medications and Allergies Home Medications Medication Instructions Recorded Confirmed Type Cephalexin [Keflex] 500 mg PO TID 05/11/21 05/11/21 History Ergocalciferol (Vitamin D2) 1,250 mcg PO WEEKLY 05/11/21 05/11/21 History [Drisdol (50,000 Iu)] Lisinopril-Hctz 20-25 mg 1 tab PO HS 05/11/21 05/11/21 History [Zestoretic 20-25] atenoloL [Tenormin] 50 mg PO HS 05/11/21 05/11/21 History Allergies Allergy/AdvReac Type Severity Reaction Status Date / Time No Known Allergies Allergy Verified 05/11/21 17:39 Physical Examination Physical Exam: Patient is awake, alert, and oriented 3 Vital signs stable Good chest excursion with deep inspiration and expiration Evidence of swelling over the right lower extremity below the knee extending to the ankle without current significant swelling over the right foot or toes of the right lower extremity Evidence of purple marker drawing of the right lower extremity to indicate cellulitis line with some improvement as compared to previous Black drawn line Evidence of erythema over the anterior garvey and right medial calf and slightly laterally Evidence of a healing scab over the anterior distal garvey at previous blister location Patient is able to perform some dorsiflexion and plantarflexion of the right lower extremity but has some increased pain with returning to neutral from a dorsiflexion position Neurovascularly intact right lower extremity Patient is able to wiggle toes of the right foot without difficulty Patient is able to perform range of motion of the right knee without difficulty Patient's pain is most significant with palpation over the anterior lower extremity over the tibia and towards the medial aspect of the distal tibia but not extending to the malleolus Some pain with palpation around the previous healing blister location No specific pain with palpation over the medial or lateral malleolus Results Pertinent studies: CT of the right lower extremity taken on 05/18/2021: Prominent soft tissue swelling along the leg down into the hindfoot was subcutaneous edema extending to the superficial fascia and some regions in which findings suggest cellulitis; no abscess or signs of deeper soft tissue infection or osteomyelitis; fine curvilinear density along the lateral aspect of the talar head near the sinus tarsi which could represent a subtle avulsion fracture - Labs Labs: H & H 05/11/21 05/12/21 05/13/21 Range/Units 17:10 07:24 06:38 Hgb 15.1 14.1 13.1 (13.0-17.5) gm/dL Hct 44.0 41.7 38.8 L (39.0-53.0) % 05/14/21 05/15/21 05/17/21 Range/Units 05:28 06:03 06:03 Hgb 13.6 14.2 14.5 (13.0-17.5) gm/dL Hct 39.3 42.5 42.3 (39.0-53.0) % 05/19/21 Range/Units 08:56 Hgb 15.0 (13.0-17.5) gm/dL Hct 44.3 (39.0-53.0) % Result Diagrams: 05/19/21 08:56 05/19/21 08:56 Assessment and Plan Assessment: Assessment: Right lower extremity cellulitis Right lower extremity swelling Right lower extremity pain Possible subtle avulsion fracture at the lateral aspect of the talar head but is unlikely Hypertension (1) Right leg pain Current Visit: Yes Status: Acute Code(s): M79.604 - PAIN IN RIGHT LEG SNOMED Code(s): 558654080 (2) Right leg swelling Current Visit: Yes Status: Acute Code(s): M79.89 - OTHER SPECIFIED SOFT TISSUE DISORDERS SNOMED Code(s): 308444817 (3) Hypertension Current Visit: Yes Status: Acute Code(s): I10 - ESSENTIAL (PRIMARY) HYPERTENSION SNOMED Code(s): 12837606 (4) Cellulitis of right lower leg Current Visit: Yes Status: Acute Code(s): L03.115 - CELLULITIS OF RIGHT LOWE R LIMB SNOMED Code(s): 242375421 (5) Failure of outpatient treatment Current Visit: Yes Status: Acute Code(s): Z78.9 - OTHER SPECIFIED HEALTH STATUS SNOMED Code(s): 339349357 Plan: Plan: 1. Patient has been discussed in detail with Dr. Ubaldo Quesada. We have reviewed his CT imaging of the right lower extremity. Patient has been experiencing difficulty with this right lower extremity without injury since 05/08/2021. His symptoms progressed fairly rapidly over couple days going from pain to an area of erythema over the right lower extremity and then extending up the right lower extremity to just below the knee. He has had improvement of his symptoms overall during his admission to the hospital on antibiotic medication. He is being seen by infectious disease, vascular surgery, and medicine. CT imaging of the right lower extremity ruled out abscess or deep soft tissue infection. Pat ient has continued to use elevation, ice, and compression for some comfort. Most significantly he has significant swelling after a short ambulation. He does continue to have pain most significant over the anterior distal tibia and some towards the medial distal tibia but not extending to the malleolus. Reviewing of CT imaging of the right lower extremity does not show specific fracture of the talus but there is some question of avulsion fracture. Given the patient's age and lack of any injury to the right lower extremity to be difficult to believe the patient would have an acute fracture. Patient has been discussed in detail with Dr. Ubaldo Quesada again. He'll plan to see the patient at the bedside for further evaluation and willl determine an appropriate plan of care proceeding forward in regards to his right lower extremity. 2. Patient will continue be seen and examined by multiple other medical providers including medicine, infectious disease, and vascular surgery. Time with Patient: Greater than 30 <Kristin Quesada - Last Filed: 05/20/21 13:28> Physical Examination Osteopathic Statement: *. No significant issues noted on an osteopathic structural exam other than those noted in the History and Physical/Consult. Results - Labs Labs: H & H 05/11/21 05/12/21 05/13/21 Range/Units 17:10 07:24 06:38 Hgb 15.1 14.1 13.1 (13.0-17.5) gm/dL Hct 44.0 41.7 38.8 L (39.0-53.0) % 05/14/21 05/15/21 05/17/21 Range/Units 05:28 06:03 06:03 Hgb 13.6 14.2 14.5 (13.0-17.5) gm/dL Hct 39.3 42.5 42.3 (39.0-53.0) % 05/19/21 Range/Units 08:56 Hgb 15.0 (13.0-17.5) gm/dL Hct 44.3 (39.0-53.0) % Result Diagrams: 05/19/21 08:56 05/19/21 08:56 Assessment and Plan Plan: Is seen and examined at bedside. I reviewed the above and discussed the situation with the patient as well. I am in agreement with the above. The patient has not had injury to his ankle or foot. The swelling is making some improvement with local wound care and medical management. The computed tomography scan results of possible cortical irregularity at the talus does not correlate with his physical exam. He is not having any specific pain over his talus or sinus tarsi. He has diffuse pain over his calf and lower leg with a cellulitis but does not seem to have specific pain at his hindfoot or talus. I do not think that he has a fracture at his talus. I do not think that he is a specific bony injury at this point. I think it is okay for the patient to weight-bear as tolerated. I offered him a boot but he does not like to have pressure around his lower leg at this point with a cellulitis and I think that is reasonable. It is okay for him to mobilize and weight-bear as tolerated on his left lower extremity. I do not think that he has a specific bony injury or instability to necessitate required immobilization. I do not plan any further. Intervention at this point.
[2021-05-20] MEDS ORDERED: diphenhydrAMINE 50 MG/ML 1 ML VIAL IVP PRN (11:50)
[2021-05-20] MEDS ORDERED: methylPREDNISolone SOD SUCCI 125 MG/2 ML VIAL IV STA (11:50)
[2021-05-20] MEDS: FAMOTIDINE 20 MG/2 ML VIAL IV SCH ×2 (12:33→21:23)
--- NOTE | 2021-05-20 17:04 | PN ---
PROGRESS NOTE DATE OF SERVICE: 05/20/2021 REASON FOR FOLLOWUP: Right lower extremity cellulitis. INTERVAL HISTORY: Patient is afebrile, has been breathing comfortably. Denies having any chest pain, shortness of breath or cough. No abdominal pain, or any worsening pain to the right leg. PHYSICAL EXAMINATION: Blood pressure 112/62 with a pulse of 71, temperature 98.7, he is 98% on room air. General description is a middle-aged male lying in bed in no distress. Respiratory system: Unlabored breathing, clear to auscultation anteriorly. Heart S1, S2. Regular rate and rhythm. Abdomen soft, no tenderness. Right leg is currently dressed. Mentioned overall redness has slightly decreased. LABS: No new labs have been obtained today. DIAGNOSTIC IMPRESSION AND PLAN: Patient with acute right lower extremity cellulitis, did respond to the multiple antibiotic therapy. Currently has been switched over to daptomycin. We will re- evaluate the leg tomorrow for need for any outpatient antibiotic therapy. Continue daptomycin. Recheck inflammatory markers, and CBC. Continue supportive care. MMODL / IJN: [id number] /
[2021-05-20] MEDS: atenoloL 50 MG TAB PO SCH (21:25)
[2021-05-21 01:04] VITALS: RESP 16
[2021-05-21] MEDS: HYDROcodone/APAP 5-325MG 1 EACH TAB PO PRN ×2 (05:04→12:37)
[2021-05-21] MEDS: CHOLECALCIFEROL 25 MCG (1000 IU) TABLET PO SCH (08:09)
[2021-05-21] MEDS: GABAPENTIN 300 MG CAP PO SCH ×2 (08:09→16:07)
[2021-05-21] MEDS: FAMOTIDINE 20 MG/2 ML VIAL IV SCH (08:10)
[2021-05-21 12:31] LABS: Basophils # (A) 0.05 X 10*3/uL (0.00-0.10); Basophils % (A) 0.2 %; Eosinophils # (A) 0.04 X 10*3/uL (0.04-0.35); Eosinophils % (A) 0.2 %; HCT 48.3 % (39.6-50.0); HGB 16.1 g/dL (13.0-17.0); Lymphocytes # (A) 2.76 X 10*3/uL (0.90-5.00); MCH 29.8 pg (27.0-32.0); MCHC 33.3 g/dL (32.0-37.0); MCV 89.3 fL (80.0-97.0); Mean Platelet Volume 9.8 fL (9.5-12.2); Monocytes # (A) 1.94 X 10*3/uL (0.20-1.00); Monocytes % (A) 8.5 %; Neutrophils # (A) 17.96 X 10*3/uL (1.80-7.70); Neutrophils % (A) 78.3 %; Platelet Count 453 X 10*3/uL (140-440); RBC 5.41 X 10*6/uL (4.40-5.60); WBC 22.93 X 10*3/uL (4.50-10.00)
--- NOTE | 2021-05-21 13:56 | P.DS ---
Providers Date of admission: 05/11/21 18:38 Expected date of discharge: 05/21/21 Attending physician: Bridgette Prajapati, Consults: 05/15/21 12:38 Consult Physician Urgent Consulting Provider: Jacinda Portillo Consult Reason/Comments: cellulitis Do you want consulting provider notified?: Yes 05/16/21 09:41 Consult Physician Routine Consulting Provider: Zak Helms Consult Reason/Comments: abscess? Do you want consulting provider notified?: Yes 05/19/21 11:03 Consult Physician Routine Consulting Provider: Kristin Quesada Consult Reason/Comments: ? avulsion fraction Do you want consulting provider notified?: Yes Primary care physician: Carol Colin [facility] Course: Patient is a 46-year-old male for history of hypertension who presented to the emergency department at the direction of his primary care physician Dr. Sloan Mays for failed outpatient treatment of cellulitis. Patient was admitted to the hospital for further management of his medical problems noted below. Right extremity cellulitis with multiple different antibiotic that was adjusted throughout his hospital stay by infectious disease. Consulted vascular surgery, no need for I&D at this time. Computed tomography scan showed no evidence of abscess formation. Right lower [place] evening as Doppler-no DVT. His overall condition improved significantly. Infectious disease recommended to finish antibiotic with clindamycin 300 mg 3 times a day for 7 days. Home dose of lisinopril/hydrochlorothiazide will be discontinued secondary to episode of hypotension during this hospital. Patient to follow-up with his PCP as directed. He will be discharged home in a stable condition. Physical exam: General: The patient is awake and alert, in no distress Eye: there is normal conjunctiva bilaterally. Neck: The neck is supple, there is no JVD. Cardiovascular: Normal S1-S2, no S3-S4, no murmurs. Respiratory: Lungs clear to auscultation bilaterally Gastrointestinal: Abdomen is soft, nontender Musculoskeletal: There is no pedal edema. Area of erythema on the right lower extremity is significantly better compared to the original marker. There is no warmth or tenderness to palpation. There is some residual skin discoloration above the ankle. Neurological:. Speech is normal. Skin: Skin is warm and dry Patient Condition at Discharge: Stable Plan - Discharge Summary Discharge Rx Participant: Yes New Discharge Prescriptions: New Clindamycin [Cleocin] 300 mg PO Q8H #42 cap Continue Ergocalciferol (Vitamin D2) [Drisdol (50,000 Iu)] 1,250 mcg PO WEEKLY atenoloL [Tenormin] 50 mg PO HS Discontinued Lisinopril-Hctz 20-25 mg [Zestoretic 20-25] 1 tab PO HS Cephalexin [Keflex] 500 mg PO TID Discharge Medication List Ergocalciferol (Vitamin D2) [Drisdol (50,000 Iu)] 1,250 mcg PO WEEKLY 05/11/21 [History] atenoloL [Tenormin] 50 mg PO HS 05/11/21 [History] Clindamycin [Cleocin] 300 mg PO Q8H #42 cap 05/21/21 [Rx] Follow up Appointment(s)/Referral(s): Carol Colin MD [Primary Care Provider] - 05/28/21 12:00 pm Discharge Disposition: HOME SELF-CARE
[2021-05-21 14:43] LABS: African American GFR (CKD) 105.6 (60.0-200.0); Anion Gap 12.4 mmol/L (4.00-12.00); C Reactive Protein 4.3 mg/dL (0.0-0.8); Calcium 8.9 mg/dL (8.7-10.3); Carbon Dioxide 20.6 mmol/L (21.6-31.8); Non-African American GFR(CKD) 91.1 (60.0-200.0); Potassium 4.3 mmol/L (3.5-5.5)
[2021-05-21 14:55] VITALS: BP 97/64; PULSE 70; TEMP 97.8
[2021-05-21] MEDS ORDERED: SILVER sulfADIAZINE Cream 400 GM 1 APPLIC APPLIC TOPICAL SCH (15:00)
--- NOTE | 2021-05-21 17:34 | PN ---
PROGRESS NOTE DATE OF SERVICE: 05/21/2021 REASON FOR FOLLOWUP: Right lower extremity cellulitis. INTERVAL HISTORY: The patient is afebrile. He is breathing comfortably. Denies having any chest pain, shortness of breath or cough. No abdominal pain. Overall pain and discomfort to the right leg has decreased. PHYSICAL EXAMINATION: Blood pressure 97/64, pulse of 70, temperature 97.8. He is 100% on room air. GENERAL DESCRIPTION: General description is a middle-aged male lying in bed in no distress. RESPIRATORY SYSTEM: Unlabored breathing. Clear to auscultation anteriorly. HEART: S1, S2. Regular rate and rhythm. ABDOMEN: Soft. No tenderness. Right leg swelling and redness has decreased. LABS: White count is up to 22.3, creatinine is 1.8. Blood culture has been negative. Local culture negative. DIAGNOSTIC IMPRESSION AND PLAN: Patient with acute right lower extremity cellulitis in this patient who did show overall clinical improvement. The patient is refusing IV antibiotic therapy and would like to go home on oral. Recommend clindamycin mg every 8 hours for 10 days and close outpatient followup. MMODL / IJN: [id number] /
== END 2021-05-21 17:33 | disposition home or self-care (01) | DRG 872 ==
LOC: EC 15:01 → 4SSUR 18:38
PROVIDERS: ADMIT Internal Medicine; ATTEND Internal Medicine
DX: A41.9 Sepsis, unspecified organism (principal); L03.115 Cellulitis of right lower limb; E87.1 Hypo-osmolality and hyponatremia; E55.9 Vitamin D deficiency, unspecified; E86.0 Dehydration; I10 Essential (primary) hypertension; L27.0 Generalized skin eruption due to drugs and medicaments taken internally; L29.9 Pruritus, unspecified; Z53.20 Procedure and treatment not carried out because of patient's decision for unspecified reasons; Z79.899 Other long term (current) drug therapy; Z88.1 Allergy status to other antibiotic agents
CPT/HCPCS: 36415; 80048; 80053; 80202; 83605; 83735; 85025; 85027; 85652; 86140; 87040; 87070; 87205; 96361; 96374; 96375; 99284

== ENCOUNTER → 2023-07-11 | Outpatient (CLI) | payer BC ==
[2023-07-11 16:12] LABS: ALT 31 U/L (10-49); AST 24 U/L (14-35); Albumin 4.4 d/dL (3.8-4.9); Albumin/Globulin Ratio 1.42 Ratio (1.60-3.17); Alkaline Phosphatase 105 U/L (41-126); BUN/Creat Ratio 14.91 Ratio (12.00-20.00); Blood Urea Nitrogen 16.4 mg/dL (9.0-27.0); Calcium 9.5 mg/dL (8.7-10.3); Carbon Dioxide 25.8 mmol/L (21.6-31.8); Chloride 101 mmol/L (96-109); Chol/HDL Ratio 4.99 Ratio; Globulin 3.1 d/dL (1.6-3.3); Glucose 96 mg/dL (70-110); LDL Cholesterol,Calculated 130.3 mg/dL (0.0-131.0); Potassium 4.5 mmol/L (3.5-5.5); Sodium 138 mmol/L (135-145); Total Bilirubin 0.5 mg/dL (0.3-1.2); Total Protein 7.5 d/dL (6.2-8.2)
[2023-07-11 16:41] LABS: Basophils # (A) 0.08 X 10*3/uL (0.00-0.10); Basophils % (A) 0.7 %; Eosinophils % (A) 1.7 %; HCT 48.4 % (39.6-50.0); HGB 16.5 d/dL (13.0-17.0); Lymphocytes # (A) 3.92 X 10*3/uL (0.90-5.00); Lymphocytes % (A) 33.4 %; MCH 29.9 pg (27.0-32.0); MCHC 34.1 d/dL (32.0-37.0); MCV 87.7 FL (80.0-97.0); Mean Platelet Volume 10.5 FL (9.5-12.2); Monocytes # (A) 1.24 X 10*3/uL (0.20-1.00); Monocytes % (A) 10.6 %; NRBC Per 100 WBC 0 X 10*3/uL (0.00-0.01); Neutrophils # (A) 6.28 X 10*3/uL (1.80-7.70); Neutrophils % (A) 53.3 %; Platelet Count 317 X 10*3/uL (140-440); RBC 5.52 X 10*6/uL (4.40-5.60); RDW 12.2 % (11.5-14.5); WBC 11.75 X 10*3/uL (4.50-10.00)
== END | disposition home or self-care (01) ==
LOC: LABWHC1 08:56
PROVIDERS: ATTEND Family Medicine
DX: Z00.00 Encounter for general adult medical examination without abnormal findings (principal)
CPT/HCPCS: 36415; 80053; 80061; 84443; 85025

== ENCOUNTER 2024-02-17 13:55 | Emergency (ER) | payer BC ==
[2024-02-17 14:15] VITALS: RESP 18
--- NOTE | 2024-02-17 14:21 | ED ---
General Adult HPI - General Chief complaint: Nausea/Vomiting/Diarrhea Stated complaint: Vomitting, diarrhea Time Seen by Provider: 02/17/24 14:12 Source: patient, RN notes reviewed Mode of arrival: ambulatory Limitations: no limitations - History of Present Illness Initial comments: This is a 49-year-old male with past medical history of hypertension presents emergency department chief complaint of diarrhea over the past week. Patient states that he had a few episodes of emesis this morning. Endorses chills, nausea, bilateral flank pain. Denies blood in stool, hematemesis, recent travel out of the country, trying new foods. Denies hematuria, dysuria, frequency, urgency, chest pain, chest pressure, dysuria, dizziness, lightheadedness. Denies previous surgeries of his abdomen. - Related Data Home Medications Medication Instructions Recorded Confirmed Ergocalciferol (Vitamin D2) 1,250 mcg PO WEEKLY 05/11/21 05/11/21 [Drisdol (50,000 Iu)] atenoloL [Tenormin] 50 mg PO HS 05/11/21 05/11/21 Previous Rx's Medication Instructions Recorded Clindamycin [Cleocin] 300 mg PO Q8H #42 cap 05/21/21 HYDROcodone/APAP 5-325MG [[place] 1 tab PO Q8H PRN 3 Days #9 tab 05/21/21 5-325] Allergies Allergy/AdvReac Type Severity Reaction Status Date / Time No Known Allergies Allergy Verified 05/11/21 17:39 Review of Systems ROS Statement: Those systems with pertinent positive or pertinent negative responses have been documented in the HPI. ROS Other: All systems not noted in ROS Statement are negative. Past Medical History Past Medical History: Hypertension History of Any Multi-Drug Resistant Organisms: None Reported Past Surgical History: No Surgical Hx Reported Past Anesthesia/Blood Transfusion Reactions: Unable to Obtain Additional Past Anesthesia/Blood Transfusion Reaction / Comment(s): PT has never had. Past Psychological History: No Psychological Hx Reported Smoking Status: Never smoker Past Alcohol Use History: Occasional Past Drug Use History: None Reported - Past Family History family Family Medical History: No Reported History General Exam Limitations: no limitations General appearance: alert, in no apparent distress Head exam: Present: atraumatic, normocephalic, normal inspection Eye exam: Present: normal appearance, PERRL, EOMI. Absent: scleral icterus, conjunctival injection, periorbital swelling ENT exam: Present: normal exam, mucous membranes moist Neck exam: Present: normal inspection. Absent: tenderness, meningismus, lymphadenopathy Respiratory exam: Present: normal lung sounds bilaterally. Absent: respiratory distress, wheezes, rales, rhonchi, stridor Cardiovascular Exam: Present: regular rate, normal rhythm, tachycardia, normal heart sounds GI/Abdominal exam: Present: soft, tenderness (epigastric, LLQ), normal bowel sounds. Absent: distended, guarding, rebound, rigid Extremities exam: Present: normal inspection, full ROM, normal capillary refill. Absent: tenderness, pedal edema, joint swelling, calf tenderness Back exam: Present: normal inspection, CVA tenderness (R), CVA tenderness (L) Neurological exam: Present: alert, oriented X3, CN II-XII intact Skin exam: Present: warm, dry, intact, normal color. Absent: rash Course Vital Signs 02/17/24 02/17/24 02/17/24 14:13 18:11 18:35 Temperature 99.5 F 98.8 F 99 F Pulse Rate 111 H 90 Respiratory 18 18 Rate Blood Pressure 115/66 123/77 O2 Sat by Pulse 97 99 Oximetry Medical Decision Making - Medical Decision Making Was pt. sent in by a medical professional or institution (, PA, BRADDER, urgent care, hospital, or shelter...) When possible be specific @ -No Did you speak to anyone other than the patient for history (EMS, parent, family, police, friend...)? What history was obtained from this source @ -No Did you review nursing and triage notes (agree or disagree)? Why? @ -I reviewed and agree with nursing and triage notes Were old charts reviewed (outside hosp., previous admission, EMS record, old EKG, old radiological studies, urgent care reports/EKG's, shelter records)? Report findings @ -No old charts were reviewed Differential Diagnosis (chest pain, altered mental status, abdominal pain women, abdominal pain men, vaginal bleeding, weakness, fever, dyspnea, syncope, headache, dizziness, GI bleed, back pain, seizure, CVA, palpatations, mental health, musculoskeletal)? @ -Differential Abdominal Pain Men: Appendicitis, cholecystitis, diverticulosis, ischemic bowel, pancreatitis, hepatitis, UTI, gastroenteritis, AAA, incarcerated hernia, bowel obstruction, constipation, inflammatory bowel, hepatitis, peptic ulcer disease, splenic infarction, perforated viscus, testicular torsion, this is not meant to be an all-inclusive list EKG interpreted by me (3pts min.). @ -None X-rays interpreted by me (1pt min.). @ -None done CT interpreted by me (1pt min.). @ -CT of the abdomen and pelvis with contrast reveals nonspecific scattered fluid in the nondistended small bowel loops, correlate for possible enteritis. U/S interpreted by me (1pt. min.). @ -None done What testing was considered but not performed or refused? (CT, X-rays, U/S, labs)? Why? @ -None What meds were considered but not given or refused? Why? @ -Diuretics were considered but deferred at this time. CT nonconcerning for acute process hide from enteritis, CBC mildly elevated likely consistent with reactive. Did you discuss the management of the patient with other professionals (p ruthfessionals i.e. , PA, BRADDER, lab, RT, psych nurse, social media content specialist, modeling agent, teacher, chief financial officer, egg caser)? Give summary @ -No Was smoking cessation discussed for >3mins.? @ -No Was critical care preformed (if so, how long)? @ -No Were there social determinants of health that impacted care today? How? (Homelessness, low income, unemployed, alcoholism, drug addiction, transportation, low edu. Level, literacy, decrease access to med. care, usp, rehab)? @ -No Was there de-escalation of care discussed even if they declined (Discuss DNR or withdrawal of care, Hospice)? DNR status @ -No What co-morbidities impacted this encounter? (DM, HTN, Smoking, COPD, CAD, Cancer, CVA, ARF, Chemo, Hep., AIDS, mental health diagnosis, sleep apnea, morbid obesity)? @ -None Was patient admitted / discharged? Hospital course, mention meds given and route, prescriptions, significant lab abnormalities, going to OR and other pertinent info. @49-year-old male with diarrhea, nausea and vomiting. On examination patient was noted to haven mild tenderness to the right costovertebral angle. At this time IV placed. Lab work drawn and urinalysis ordered. Patient was sent for CT abdomen pelvis pending results of BMP, will be empirically treated with IV fluids. Pain and antinausea medication offered but patient declined. CBC mild leukocytosis of 14.4, elevated neutrophils of 12.9. CMP low sodium 135, this is elevated specific gravity and trace protein. Negative COVID, flu, RSV. CAT sc an unremarkable for acute process. Recommend the patient continues to use oral rehydration at home and [id number] Imodium as needed. Recommend patient follow-up with his primary care provider within the week for further evaluation. All questions answered at bedside and strict return parameters ernestine with patient which she verbalized understanding. Case discussed with my attending Dr. Pennington Undiagnosed new problem with uncertain prognosis? @ -No Drug Therapy requiring intensive monitoring for toxicity (Heparin, Nitro, Insulin, Cardizem)? @ -No Were any procedures done? @ -No Diagnosis/symptom? @ -Gastroenteritis, diarrhea, nausea and vomiting Acute, or Chronic, or Acute on Chronic? @ -Acute Uncomplicated (without systemic symptoms) or Complicated (systemic symptoms)? @ -uncomplicated Side effects of treatment? @ -No Exacerbation, Progression, or Severe Exacerbation? @ -No Poses a threat to life or bodily function? How? (Chest pain, USA, [place], pneumonia, PE, COPD, DKA, ARF, appy, cholecystitis, CVA, Diverticulitis, Homicidal, Suicidal, threat to staff... and all critical care pts) @ -No - Lab Data Result diagrams: 02/17/24 14:47 02/17/24 14:47 Lab Results 02/17/24 02/17/24 02/17/24 Range/Units 14:38 14:47 14:47 WBC 14.4 H (3.8-10.6) k/uL RBC 5.37 (4.30-5.90) m/uL Hgb 16.1 (13.0-17.5) gm/dL Hct 48.4 (39.0-53.0) % MCV 90.1 (80.0-100.0) fL MCH 29.9 (25.0-35.0) pg MCHC 33.2 (31.0-37.0) g/dL RDW 12.7 (11.5-15.5) % Plt Count 255 (150-450) k/uL MPV 8.0 Neutrophils % 90 % Lymphocytes % 3 % Monocytes % 5 % Eosinophils % 1 % Basophils % 0 % Neutrophils # 12.9 H (1.3-7.7) k/uL Lymphocytes # 0.5 L (1.0-4.8) k/uL Monocytes # 0.7 (0-1.0) k/uL Eosinophils # 0.2 (0-0.7) k/uL Basophils # 0.0 (0-0.2) k/uL Sodium 135 L (137-145) mmol/L Potassium 4.2 (3.5-5.1) mmol/L Chloride 105 (98-107) mmol/L Carbon Dioxide 21 L (22-30) mmol/L Anion Gap 9 mmol/L BUN 16 (9-20) mg/dL Creatinine 0.85 (0.66-1.25) mg/dL Est GFR (CKD-EPI)AfAm >90 (>60 ml/min/1.73 sqM) Est GFR (CKD-EPI)NonAf >90 (>60 ml/min/1.73 sqM) Glucose 111 H (74-99) mg/dL Calcium 8.8 (8.4-10.2) mg/dL Total Bilirubin 0.9 (0.2-1.3) mg/dL AST 28 (17-59) U/L ALT 24 (4-49) U/L Alkaline Phosphatase 87 (38-126) U/L Total Protein 7.4 (6.3-8.2) g/dL Albumin 4.1 (3.5-5.0) g/dL Amylase 53 (30-110) U/L Lipase 79 (23-300) U/L Urine Color Urine Appearance (Clear) Urine pH (5.0-8.0) Ur Specific [place] (1.001-1.035) Urine Protein (Negative) Urine Glucose (UA) (Negative) Urine Ketones (Negative) Urine Blood (Negative) Urine Nitrite (Negative) Urine Bilirubin (Negative) Urine Urobilinogen (<2.0) mg/dL Ur Leukocyte Esterase (Negative) Influenza Type A (PCR) Not Detected (Not Detectd) Influenza Type B (PCR) Not Detected (Not Detectd) RSV (PCR) Not Detected (Not Detectd) SARS-CoV-2 (PCR) Not Detected (Not Detectd) 02/17/24 Range/Units 16:57 WBC (3.8-10.6) k/uL RBC (4.30-5.90) m/uL Hgb (13.0-17.5) gm/dL Hct (39.0-53.0) % MCV (80.0-100.0) fL MCH (25.0-35.0) pg MCHC (31.0-37.0) g/dL RDW (11.5-15.5) % Plt Count (150-450) k/uL MPV Neutrophils % % Lymphocytes % % Monocytes % % Eosinophils % % Basophils % % Neutrophils # (1.3-7.7) k/uL Lymphocytes # (1.0-4.8) k/uL Monocytes # (0-1.0) k/uL Eosinophils # (0-0.7) k/uL Basophils # (0-0.2) k/uL Sodium (137-145) mmol/L Potassium (3.5-5.1) mmol/L Chloride (98-107) mmol/L Carbon Dioxide (22-30) mmol/L Anion Gap mmol/L BUN (9-20) mg/dL Creatinine (0.66-1.25) mg/dL Est GFR (CKD-EPI)AfAm (>60 ml/min/1.73 sqM) Est GFR (CKD-EPI)NonAf (>60 ml/min/1.73 sqM) Glucose (74-99) mg/dL Calcium (8.4-10.2) mg/dL Total Bilirubin (0.2-1.3) mg/dL AST (17-59) U/L ALT (4-49) U/L Alkaline Phosphatase (38-126) U/L Total Protein (6.3-8.2) g/dL Albumin (3.5-5.0) g/dL Amylase (30-110) U/L Lipase (23-300) U/L Urine Color Colorless Urine Appearance Clear (Clear) Urine pH 6.5 (5.0-8.0) Ur Specific [place] >1.050 H (1.001-1.035) Urine Protein Trace H (Negative) Urine Glucose (UA) Negative (Negative) Urine Ketones Negative (Negative) Urine Blood Negative (Negative) Urine Nitrite Negative (Negative) Urine Bilirubin Negative (Negative) Urine Urobilinogen <2.0 (<2.0) mg/dL Ur Leukocyte Esterase Negative (Negative) Influenza Type A (PCR) (Not Detectd) Influenza Type B (PCR) (Not Detectd) RSV (PCR) (Not Detectd) SARS-CoV-2 (PCR) (Not Detectd) Disposition Clinical Impression: Gastroenteritis, Diarrhea Disposition: HOME SELF-CARE Condition: Good Instructions (If sedation given, give patient instructions): Acute Diarrhea (ED) Additional Instructions: Return to the emergency department if symptoms worsen or not improve. Recommend follow-up with your primary care provider in the next few days for further evaluation. Take Imodium at home as needed for diarrhea relief. Is patient prescribed a controlled substance at d/c from ED?: No Referrals: None,Stated [Primary Care Provider] - 1-2 days Time of Disposition: 18:30
[2024-02-17] MEDS: SODIUM CHLORIDE 0.9% 1,000 ML IV STA (14:47)
[2024-02-17 15:06] LABS: Basophils % (A) 0 %; Eosinophils # (A) 0.2 k/uL (0-0.7); Eosinophils % (A) 1 %; HCT 48.4 % (39.0-53.0); HGB 16.1 gm/dL (13.0-17.5); Lymphocytes # (A) 0.5 k/uL (1.0-4.8); Lymphocytes % (A) 3 %; MCH 29.9 pg (25.0-35.0); MCHC 33.2 g/dL (31.0-37.0); MCV 90.1 fL (80.0-100.0); Monocytes # (A) 0.7 k/uL (0-1.0); Monocytes % (A) 5 %; Neutrophils # (A) 12.9 k/uL (1.3-7.7); Neutrophils % (A) 90 %; Platelet Count 255 k/uL (150-450); RBC 5.37 m/uL (4.30-5.90); RDW 12.7 % (11.5-15.5); WBC 14.4 k/uL (3.8-10.6)
[2024-02-17 15:17] LABS: ALT 24 U/L (4-49); AST 28 U/L (17-59); African American GFR (CKD) >90 (>60 ml/min/1.73 sqM); Albumin 4.1 g/dL (3.5-5.0); Alkaline Phosphatase 87 U/L (38-126); Amylase 53 U/L (30-110); Anion Gap 9 mmol/L; Blood Urea Nitrogen 16 mg/dL (9-20); Calcium 8.8 mg/dL (8.4-10.2); Carbon Dioxide 21 mmol/L (22-30); Chloride 105 mmol/L (98-107); Glucose 111 mg/dL (74-99); Lipase 79 U/L (23-300); Non-African American GFR(CKD) >90 (>60 ml/min/1.73 sqM); Potassium 4.2 mmol/L (3.5-5.1); Sodium 135 mmol/L (137-145); Total Bilirubin 0.9 mg/dL (0.2-1.3); Total Protein 7.4 g/dL (6.3-8.2)
[2024-02-17] MEDS: IBUPROFEN 800 MG TAB PO STA (16:54)
[2024-02-17] MEDS: ACETAMINOPHEN TAB 500 MG TAB PO STA (16:54)
[2024-02-17 17:13] LABS: Appearance,Urine Clear (Clear); Bilirubin,Urine Negative (Negative); Blood,Urine Negative (Negative); Color,Urine Colorless; Glucose,Urine (UA) Negative (Negative); Ketones,Urine Negative (Negative); Leukocyte Esterase,Urine Negative (Negative); Nitrite,Urine Negative (Negative); PH, Urine 6.5 (5.0-8.0); Protein,Urine Trace (Negative); Urobilinogen,Urine <2.0 mg/dL (<2.0)
[2024-02-17 17:15] LABS: Specific Gravity,Urine >1.050 (1.001-1.035)
--- NOTE | 2024-02-17 18:18 | CT ---
EXAMINATION TYPE: CT abdomen pelvis w con CT DLP: 3767.4 mGycm, Automated exposure control for dose reduction was used. DATE OF EXAM: 02/17/2024 3:55 PM COMPARISON: None. CLINICAL INDICATION:Male, 49 years old with history of diarrhea, vomiting, flank pain; TECHNIQUE: Axial CT of the abdomen and pelvis. Sagittal and coronal reformats were created on a [employer] workstation. Contrast used: 100 cc Isovue 300 IV Oral contrast used: None FINDINGS: LOWER CHEST: Unremarkable ABDOMEN LIVER: Unremarkable GALLBLADDER AND BILE DUCTS: Unremarkable gallbladder. No biliary ductal dilatation. PANCREAS: Unremarkable. SPLEEN: Unremarkable. ADRENAL GLANDS: Mildly thickened, may be seen with hyperplasia.. KIDNEYS AND URETERS: Kidneys enhance symmetrically. No evidence of hydronephrosis or visible renal ca lculus. The ureters are unremarkable. A 1.9 cm cyst in the mid left kidney. PELVIS BLADDER: Nondistended, grossly unremarkable. REPRODUCTIVE: Unremarkable. ABDOMEN & PELVIS STOMACH AND BOWEL: Stomach and small bowel are nondistended, no evidence of obstruction. Some scatt ered fluid within nondistended small bowel loops, nonspecific. No evidence of appendicitis. Mild-to-m oderate stool throughout the colon, with possibly some fluid content proximally. A few clonic diverti cula without signs of diverticulitis. PERITONEUM/RETROPERITONEUM: No evidence of pneumoperitoneum o r free fluid. VASCULATURE: Aorta and major branches are grossly unremarkable. No AAA. Portal veins are enhancing. Splenic vein is patent. LYMPH NODES: No enlarged nodes by CT size criteria. SOFT TISSUE/ABDOMINAL WALL: No acute abnormality. Small fat-containing umbilical hernia. MUSCULOSKELETAL: No acute osseous abnormalities. IMPRESSION: 1. No clearly acute CT abnormality to explain the patient's symptoms. 2. Nonspecific scattered fluid in nondistended small bowel loops, correlate for possible enteritis.
[2024-02-17 18:39] VITALS: BP 123/77; PULSE 90; TEMP 99
== END 2024-02-17 18:39 | disposition home or self-care (01) ==
LOC: EC 13:55
DX: K52.9 Noninfective gastroenteritis and colitis, unspecified (principal); D72.819 Decreased white blood cell count, unspecified
CPT/HCPCS: 36415; 80053; 82150; 83690; 85025; 81003; 87636; 74177; 99284; 96360; 96361 ×3; Q9967

== ENCOUNTER → 2024-07-28 | Outpatient (CLI) | payer BC ==
[2024-07-28 15:10] LABS: Basophils # (A) 0.05 X 10*3/uL (0.00-0.10); Basophils % (A) 0.4 %; Eosinophils # (A) 0.16 X 10*3/uL (0.04-0.35); Eosinophils % (A) 1.3 %; HCT 48.6 % (39.6-50.0); HGB 16.2 g/dL (13.0-17.0); Lymphocytes # (A) 3.41 X 10*3/uL (0.90-5.00); Lymphocytes % (A) 28.7 %; MCH 29.3 pg (27.0-32.0); MCHC 33.3 g/dL (32.0-37.0); Mean Platelet Volume 10.4 FL (9.5-12.2); Monocytes # (A) 1.25 X 10*3/uL (0.20-1.00); Monocytes % (A) 10.5 %; NRBC Per 100 WBC 0 X 10*3/uL (0.00-0.01); Neutrophils # (A) 6.96 X 10*3/uL (1.80-7.70); Neutrophils % (A) 58.8 %; Platelet Count 325 X 10*3/uL (140-440); RBC 5.52 X 10*6/uL (4.40-5.60); RDW 12.3 % (11.5-14.5); WBC 11.87 X 10*3/uL (4.50-10.00)
[2024-07-28 16:01] LABS: ALT 24 U/L (10-49); AST 21 U/L (14-35); Albumin 4.3 g/dL (3.8-4.9); Albumin/Globulin Ratio 1.48 Ratio (1.60-3.17); Alkaline Phosphatase 98 U/L (41-126); BUN/Creat Ratio 12.69 Ratio (12.00-20.00); Blood Urea Nitrogen 16.5 mg/dL (9.0-27.0); Calcium 9.7 mg/dL (8.7-10.3); Carbon Dioxide 27.2 mmol/L (21.6-31.8); Chloride 100 mmol/L (96-109); Chol/HDL Ratio 4.67 Ratio; Globulin 2.9 g/dL (1.6-3.3); Glucose 111 mg/dL (70-110); LDL Cholesterol,Calculated 131.3 mg/dL (0.0-131.0); Potassium 4.9 mmol/L (3.5-5.5); Sodium 140 mmol/L (135-145); Total Bilirubin 0.6 mg/dL (0.3-1.2); Total Protein 7.2 g/dL (6.2-8.2); VLDL Calculation 18.76 mg/dL (5.00-40.00)
== END | disposition home or self-care (01) ==
LOC: LABWHC1 09:01
PROVIDERS: ATTEND Family Medicine
DX: Z00.00 Encounter for general adult medical examination without abnormal findings (principal)
CPT/HCPCS: 36415; 80053; 80061; 83036; 84443; 85025

== ENCOUNTER 2025-01-20 02:09 | Emergency (ER) | payer BC ==
[2025-01-20 02:12] VITALS: RESP 18
--- NOTE | 2025-01-20 02:22 | ED ---
General Adult HPI - General Chief complaint: Upper Respiratory Infection Stated complaint: Congestion,Vomiting Time Seen by Provider: 01/20/25 02:21 Source: patient, RN notes reviewed Mode of arrival: ambulatory - History of Present Illness Initial comments: 49-year-old male with a past medical history significant of hypertension presented the ER for evaluation of cough and congestion. Patient states on Friday he felt unwell and started experiencing cough and congestion. He also reports intermittent fevers over Friday and Friday this is since resolved. Patient states continued cough and wheezing. He is taken [id number] Coricidin without relief of symptoms. He denies any chest pain, shortness of breath, abdominal pain, diarrhea/constipation. He does report occasional vomiting but states he is able to keep down liquids and chicken broth without difficulty. He denies any hematic emesis or coffee-ground emesis. No other complaints - Related Data Home Medications Medication Instructions Recorded Confirmed Ergocalciferol (Vitamin D2) 1,250 mcg PO WEEKLY 05/11/21 05/11/21 [Drisdol (50,000 Iu)] atenoloL [Tenormin] 50 mg PO HS 05/11/21 05/11/21 Previous Rx's Medication Instructions Recorded Clindamycin [Cleocin] 300 mg PO Q8H #42 cap 05/21/21 HYDROcodone/APAP 5-325MG [[place] 1 tab PO Q8H PRN 3 Days #9 tab 05/21/21 5-325] Allergies Allergy/AdvReac Type Severity Reaction Status Date / Time No Known Allergies Allergy Verified 01/20/25 02:12 Review of Systems ROS Statement: Those systems with pertinent positive or pertinent negative responses have been documented in the HPI. ROS Other: All systems not noted in ROS Statement are negative. Past Medical History Past Medical History: Hypertension History of Any Multi-Drug Resistant Organisms: None Reported Past Surgical History: No Surgical Hx Reported Past Anesthesia/Blood Transfusion Reactions: Unable to Obtain Additional Past Anesthesia/Blood Transfusion Reaction / Comment(s): PT has never had. Past Psychological History: No Psychological Hx Reported Smoking Status: Never smoker Past Alcohol Use History: Occasional Past Drug Use History: None Reported - Past Family History family Family Medical History: No Reported History General Exam Limitations: no limitations General appearance: alert, in no apparent distress ENT exam: Present: normal exam, normal oropharynx, mucous membranes moist, TM's normal bilaterally Neck exam: Present: normal inspection. Absent: tenderness, meningismus, lymphadenopathy Respiratory exam: Present: normal lung sounds bilaterally. Absent: respiratory distress, wheezes, rales, rhonchi, stridor Cardiovascular Exam: Present: regular rate, normal rhythm, normal heart sounds. Absent: systolic murmur, diastolic murmur, rubs, gallop, clicks GI/Abdominal exam: Present: soft, normal bowel sounds. Absent: distended, tenderness, guarding, rebound, rigid Neurological exam: Present: alert, oriented X3, CN II-XII intact Skin exam: Present: warm, dry, intact, normal color. Absent: rash Course Vital Signs 01/20/25 01/20/25 02:09 03:44 Temperature 97.9 F 97.7 F Pulse Rate 76 74 Respiratory 18 18 Rate Blood Pressure 118/88 119/79 O2 Sat by Pulse 98 98 Oximetry Medical Decision Making - Medical Decision Making Was pt. sent in by a medical professional or institution (, PA, PLATE FINISHER, urgent care, hospital, or jail...) When possible be specific @ -No Did you speak to anyone other than the patient for history (EMS, parent, family, police, friend...)? What history was obtained from this source @ -No Did you review nursing and triage notes (agree or disagree)? Why? @ -I reviewed and agree with nursing and triage notes Were old charts reviewed (outside hosp., previous admission, EMS record, old EKG, old radiological studies, urgent care reports/EKG's, jail records)? Report findings @ -No old charts were reviewed Differential Diagnosis (chest pain, altered mental status, abdominal pain women, abdominal pain men, vaginal bleeding, weakness, fever, dyspnea, syncope, headache, dizziness, GI bleed, back pain, seizure, CVA, palpatations, mental health, musculoskeletal)? @ -COVID, RSV, influenza, viral sinusitis, pneumonia, strep pharyngitis, this list is not meant to be all-inclusive EKG interpreted by me (3pts min.). @ -None done X-rays interpreted by me (1pt min.). @ -[CXR interpreted by me negative for focal consolidations, pneumothorax or pleural effusions. CT interpreted by me (1pt min.). @ -None done U/S interpreted by me (1pt. min.). @ -None done What testing was considered but not performed or refused? (CT, X-rays, U/S, labs)? Why? @ -Patient refused blood work, CBC and CMP What meds were considered but not given or refused? Why? @ -Patient refused DuoNeb Did you discuss the management of the patient with other professionals (professionals i.e. DrFrancesca, PA, PLATE FINISHER, lab, RT, psych nurse, nursing home social worker, child psychology teacher, teacher, correctional probation officer, case aide)? Give summary @ -No Was smoking cessation discussed for >3mins.? @ -No Was critical care preformed (if so, how long)? @ -No Were there social determinants of health that impacted care today? How? (Homelessness, low income, unemployed, alcoholism, drug addiction, transportation, low edu. Level, literacy, decrease access to med. care, retirement, rehab)? @ -No Was there de-escalation of care discussed even if they declined (Discuss DNR or withdrawal of care, Hospice)? DNR status @ -No What co-morbidities impacted this encounter? (DM, HTN, Smoking, COPD, CAD, Cancer, CVA, ARF, Chemo, Hep., AIDS, mental health diagnosis, sleep apnea, morbid obesity)? @ -None Was patient admitted / discharged? Hospital course, mention meds given and route, prescriptions, significant lab abnormalities, going to OR and other pert inent info. @ -Discharge. 49-year-old male presented the ER for evaluation of cough and congestion. Vital stable. Patient is influenza B positive. Chest x-ray negative. Patient provided with Tylenol and Tessalon Perles. Patient received albuterol inhaler as he refused DuoNeb treatment. Upon reevaluation, patient resting comfortably in exam no signs of acute distress. Results discussed with patient, all questions answered. I advised continued use of [id number] ibuprofen and Tylenol for symptom control. Return parameters discussed. Patient discharged stable condition. Patient verbally expressed understand agreement care plan. Case discussed with ED attending, Dr. Abbott. Undiagnosed new problem with uncertain prognosis? @ -No Drug Therapy requiring intensive monitoring for toxicity (Heparin, Nitro, Insulin, Cardizem)? @ -No Were any procedures done? @ -No Diagnosis/symptom? @ -Influenza B/acute viral sinusitis Acute, or Chronic, or Acute on Chronic? @ -Acute Uncomplicated (without systemic symptoms) or Complicated (systemic symptoms)? @ -Uncomplicated Side effects of treatment? @ -No Exacerbation, Progression, or Severe Exacerbation? @ -No Poses a threat to life or bodily function? How? (Chest pain, [place], [place], pneumonia, PE, COPD, DKA, ARF, appy, cholecystitis, CVA, Diverticulitis, Homicidal, Suicidal, threat to staff... and all critical care pts) @ -Low - Lab Data Lab Results 01/20/25 Range/Units 02:20 Influenza Type A (PCR) Not Detected (Not Detectd) Influenza Type B (PCR) Detected A (Not Detectd) RSV (PCR) Not Detected (Not Detectd) SARS-CoV-2 (PCR) Not Detected (Not Detectd) - Radiology Data Radiology results: report reviewed, image reviewed Disposition Clinical Impression: Influenza B, Acute viral sinusitis Disposition: HOME SELF-CARE Condition: Stable Additional Instructions: Alternate [id number] ibuprofen and Tylenol for symptom control. Follow-up with PCP. Return to the ER for new or worsening concerns. Is patient prescribed a controlled substance at d/c from ED?: No Referrals: Carol Colin MD [Primary Care Provider] - 1-2 days Time of Disposition: 03:30
[2025-01-20] MEDS: ACETAMINOPHEN TAB 325 MG TAB PO STA (02:49)
[2025-01-20] MEDS: BENZONATATE 100 MG CAP PO STA (02:49)
[2025-01-20 03:20] LABS: Influenza A Not Detected (Not Detectd); Influenza B Detected (Not Detectd); RSV Not Detected (Not Detectd)
[2025-01-20] MEDS: IPRATROPIUM-ALBUTEROL 3 ML NEB INHALATION STA (03:36)
[2025-01-20] MEDS: ALBUTEROL HFA INHALER INHALATION STA (03:40)
[2025-01-20 03:46] VITALS: BP 119/79; PULSE 74; TEMP 97.7
--- NOTE | 2025-01-20 05:23 | XR ---
EXAM: XR Chest, 2 Views CLINICAL HISTORY: cough and congestion TECHNIQUE: Frontal and lateral views of the chest. COMPARISON: 01-01-19 FINDINGS: Lungs: Unremarkable. No consolidation. Pleural space: Unremarkable. Mediastinum: Unremarkable. Normal mediastinal contour. Bones/joints: No acute findings. IMPRESSION: No acute findings.
== END 2025-01-20 03:44 | disposition home or self-care (01) ==
LOC: EC 02:09
DX: J10.1 Influenza due to other identified influenza virus with other respiratory manifestations (principal); J01.90 Acute sinusitis, unspecified
CPT/HCPCS: 71046; 87636; 94640; 99284